=== PATIENT | female | born 1970 | race American Indian/Alaskan Native ===

== ENCOUNTER 2017-10-27 17:19 | Inpatient (IN) | payer MEDICAID ==
[2017-10-27] MEDS ORDERED: NACL 0.9% 1000 ML 2,000 ML IV ONE (18:50)
[2017-10-27] MEDS ORDERED: ZOFRAN IV ONE ×2 (19:39→20:12)
[2017-10-27] MEDS ORDERED: TESSALON PERLES PO ONE (20:12)
[2017-10-27] MEDS ORDERED: MORPHINE IV ONE (20:12)
--- NOTE | 2017-10-27 20:18 | Emergency Department Report ---
HPI - HPI HPI: The patient is a 47-year-old female presents for evaluation of cough and ill- feeling for the past one day. The patient reports a nonproductive cough since last night, harsh in quality, moderate in severity, and associated with nausea and multiple episodes of nonbilious, nonbloody emesis. She is has also experienced decreased appetite and by mouth intake and generalized weakness since this a.m. The patient denies fever, chest pain, dyspnea, syncope, hemoptysis, unilateral leg swelling, abdominal pain, dysuria, hematuria, diarrhea, blood in the stool, oral contraceptive use, recent immobilization, history of DVT or PE, recent cancer. <JANETTE OCAMPO P - Last Filed: 10/27/17 20:13> <SHANA RITTER - Last Filed: 10/27/17 22:41> - General Chief Complaint: Nausea/Vomiting/Diarrhea Time Seen by Provider: 10/27/17 18:50 ED Past Medical Hx - Past Medical History Previous Medical History?: Yes Hx Congestive Heart Failure: No Hx Diabetes: No Hx Asthma: No Hx COPD: No Hx HIV: No Additional medical history: shunt in her head - Surgical History Past Surgical History?: Yes Additional Surgical History: TUBAL LIGATION - Social History Smoking Status: Never Smoker Substance Use Type: None <JANETTE OCAMPO P - Last Filed: 10/27/17 20:13> <SHANA RITTER - Last Filed: 10/27/17 22:41> - Medications Home Medications: Home Medications Medication Instructions Recorded Confirmed Last Taken Type Desmopressin [Ddavp] 0.1 mg PO BID 03/25/16 03/25/16 Unknown History Hydrocortisone [Cortef TAB] 2 tab PO QAM 03/25/16 03/25/16 Unknown History Hydrocortisone [Cortef TAB] 10 mg PO DAILY 03/25/16 03/25/16 Unknown History Levothyroxine Sodium [Synthroid] 175 mcg PO QDAY 03/25/16 03/25/16 Unknown History Potassium Chloride [K-Dur] 20 meq PO BID 03/25/16 03/25/16 Unknown History Warfarin [Coumadin] 1 mg PO Q48H 03/25/16 03/25/16 Unknown History ED Review of Systems ROS: Stated complaint: JOSE MIGUEL Other details as noted in HPI Constitutional: denies: fever ENT: denies: throat or neck pain Respiratory: reports cough denies shortness of breath Cardiovascular: denies: chest pain Endocrine: denies unexplained weight loss or gain Gastrointestinal: denies: abdominal pain reports nausea and vomiting Genitourinary: denies: dysuria Musculoskeletal: denies: leg swelling Skin: denies: rash Neurological: denies: headache Hematological/Lymphatic: denies: easy bleeding or easy bruising Psych: denies sadness or hopelessness <JANETTE OCAMPO P - Last Filed: 10/27/17 20:13> ROS: Stated complaint: JOSE MIGUEL Other details as noted in HPI <SHANA RITTER - Last Filed: 10/27/17 22:41> Physical Exam - Physical Exam Vital Signs: Vital Signs 10/27/17 18:09 Temperature 97.7 F Pulse Rate 130 H Blood Pressure 118/80 O2 Sat by Pulse 94 Oximetry Physical Exam: General: well-nourished, well-developed, no acute distress Head: Normocephalic, atraumatic Eyes: normal sclera ENT: Mucous membranes are pale and dry Neck: No neck stiffness, no cervical adenopathy Respiratory: Breath sounds equal bilaterally, no wheezing, rales, or rhonchi Cardio: S1 and S2 present, no murmurs, rubs, gallops, capillary refill is delayed Abdomen: Normoactive bowel sounds, soft abdomen, no rigidity, no guarding or rebound tenderness Musc: No pitting edema Skin: No rash Neuro: Alert oriented 3, no facial drooping, normal speech, no obvious gross sensation or motor deficits on neuro exam Psych: Normal affect <JANETTE OCAMPO P - Last Filed: 10/27/17 20:13> - Physical Exam Vital Signs: Vital Signs 10/27/17 18:09 Temperature 97.7 F Pulse Rate 130 H Blood Pressure 118/80 O2 Sat by Pulse 94 Oximetry <SHANA RITTER - Last Filed: 10/27/17 22:41> ED Course Vital Signs 10/27/17 18:09 Temperature 97.7 F Pulse Rate 130 H Blood Pressure 118/80 O2 Sat by Pulse 94 Oximetry <JANETTE OCAMPO - Last Filed: 10/27/17 20:13> Vital Signs 10/27/17 18:09 Temperature 97.7 F Pulse Rate 130 H Blood Pressure 118/80 O2 Sat by Pulse 94 Oximetry <SHANA RITTER - Last Filed: 10/27/17 22:41> ED Medical Decision Making - Medical Decision Making The patient was seen and examined by myself. The patient is placed on a first crusher and continuous pulse ox. On initial evaluation, the patient was found to be in no distress, although with significantly elevated heart rate of 130. Evaluation orders were placed. The patient is given 2 L him saline fluid bolus for treatment of dehydration and tachycardia. The patient is given a cough medicine and congestion medicine. She is also given IV Zofran for treatment of her nausea and vomiting. Lab results and imaging are pending. The patient was signed off to the operation shift supervisor physician Dr. Ritter, whom agreed to follow-up on pending labs and imaging and to arrange ultimate appropriate disposition. <JANETTE OCAMPO - Last Filed: 10/27/17 20:13> - Lab Data Result diagrams: 10/27/17 20:30 10/27/17 20:30 Lab Results 10/27/17 10/27/17 10/27/17 Range/Units 18:05 20:30 20:30 WBC 22.7 H (4.5-11.0) K/mm3 RBC 5.01 (3.65-5.03) M/mm3 Hgb 12.2 (10.1-14.3) gm/dl Hct 39.3 (30.3-42.9) % MCV 78 L (79-97) fl MCH 24 L (28-32) pg MCHC 31 (30-34) % RDW 18.9 H (13.2-15.2) % Plt Count 254 (140-440) K/mm3 Add Manual Diff Complete Total Counted 100 Seg Neuts % (Manual) 95.0 H (40.0-70.0) % Band Neutrophils % 0 % Lymphocytes % (Manual) 4.0 L (13.4-35.0) % Reactive Lymphs % (Man) 0 % Monocytes % (Manual) 1.0 (0.0-7.3) % Eosinophils % (Manual) 0 (0.0-4.3) % Basophils % (Manual) 0 (0.0-1.8) % Metamyelocytes % 0 % Myelocytes % 0 % Promyelocytes % 0 % Blast Cells % 0 % Nucleated RBC % Not Reportable Seg Neutrophils # Man 21.6 H (1.8-7.7) K/mm3 Band Neutrophils # 0.0 K/mm3 Lymphocytes # (Manual) 0.9 L (1.2-5.4) K/mm3 Abs React Lymphs (Man) 0.0 K/mm3 Monocytes # (Manual) 0.2 (0.0-0.8) K/mm3 Eosinophils # (Manual) 0.0 (0.0-0.4) K/mm3 Basophils # (Manual) 0.0 (0.0-0.1) K/mm3 Metamyelocytes # 0.0 K/mm3 Myelocytes # 0.0 K/mm3 Promyelocytes # 0.0 K/mm3 Blast Cells # 0.0 K/mm3 WBC Morphology Not Reportable Hypersegmented Neuts Not Reportable Hyposegmented Neuts Not Reportable Hypogranular Neuts Not Reportable Smudge Cells Not Reportable Toxic Granulation Not Reportable Toxic Vacuolation Not Reportable Dohle Bodies Not Reportable Pelger-Huet Anomaly Not Reportable Patrick Rods Not Reportable Platelet Estimate Appears normal Clumped Platelets Not Reportable Plt Clumps, EDTA Not Reportable Large Platelets Not Reportable Giant Platelets Not Reportable Platelet Satelliting Not Reportable Plt Morphology Comment Not Reportable RBC Morphology Not Reportable Dimorphic RBCs Not Reportable Polychromasia Not Reportable Hypochromasia Not Reportable Poikilocytosis 1+ Anisocytosis 1+ Microcytosis Few Macrocytosis Not Reportable Spherocytes Not Reportable Pappenheimer Bodies Not Reportable Sickle Cells Not Reportable Target Cells Not Reportable Tear Drop Cells Not Reportable Ovalocytes Not Reportable Helmet Cells Not Reportable [place] Bodies Not Reportable Effie Rings Not Reportable [place]ha Cells Not Reportable Bite Cells Not Reportable Crenated Cell Not Reportable Elliptocytes Not Reportable Acanthocytes (Spur) Not Reportable Rouleaux Not Reportable Hemoglobin C Crystals Not Reportable Schistocytes Not Reportable Malaria parasites Not Reportable Dagoberto Bodies Not Reportable Hem Pathologist Commnt No Sodium 144 (137-145) mmol/L Potassium 2.8 L* (3.6-5.0) mmol/L Chloride 104.4 (98-107) mmol/L Carbon Dioxide 22 (22-30) mmol/L Anion Gap 20 mmol/L BUN 8 (7-17) mg/dL Creatinine 1.6 H (0.7-1.2) mg/dL Estimated GFR 42 ml/min BUN/Creatinine Ratio 5 % Glucose 122 H (65-100) mg/dL POC Glucose 153 H (70-105) Calcium 8.9 (8.4-10.2) mg/dL Total Bilirubin 1.40 H (0.1-1.2) mg/dL AST 98 H (5-40) units/L ALT 40 (7-56) units/L Alkaline Phosphatase 79 (35-129) units/L Total Protein 6.7 (6.3-8.2) g/dL Albumin 3.0 L (3.9-5) g/dL Albumin/Globulin Ratio 0.8 % Lipase 38 (13-60) units/L HCG, Qual (Negative) Influenza A (Rapid) (Negative) Influenza B (Rapid) (Negative) 10/27/17 10/27/17 Range/Units 20:30 20:40 WBC (4.5-11.0) K/mm3 RBC (3.65-5.03) M/mm3 Hgb (10.1-14.3) gm/dl Hct (30.3-42.9) % MCV (79-97) fl MCH (28-32) pg MCHC (30-34) % RDW (13.2-15.2) % Plt Count (140-440) K/mm3 Add Manual Diff Total Counted Seg Neuts % (Manual) (40.0-70.0) % Band Neutrophils % % Lymphocytes % (Manual) (13.4-35.0) % Reactive Lymphs % (Man) % Monocytes % (Manual) (0.0-7.3) % Eosinophils % (Manual) (0.0-4.3) % Basophils % (Manual) (0.0-1.8) % Metamyelocytes % % Myelocytes % % Promyelocytes % % Blast Cells % % Nucleated RBC % Seg Neutrophils # Man (1.8-7.7) K/mm3 Band Neutrophils # K/mm3 Lymphocytes # (Manual) (1.2-5.4) K/mm3 Abs React Lymphs (Man) K/mm3 Monocytes # (Manual) (0.0-0.8) K/mm3 Eosinophils # (Manual) (0.0-0.4) K/mm3 Basophils # (Manual) (0.0-0.1) K/mm3 Metamyelocytes # K/mm3 Myelocytes # K/mm3 Promyelocytes # K/mm3 Blast Cells # K/mm3 WBC Morphology Hypersegmented Neuts Hyposegmented Neuts Hypogranular Neuts Smudge Cells Toxic Granulation Toxic Vacuolation Dohle Bodies Pelger-Huet Anomaly Patrick Rods Platelet Estimate Clumped Platelets Plt Clumps, EDTA Large Platelets Giant Platelets Platelet Satelliting Plt Morphology Comment RBC Morphology Dimorphic RBCs Polychromasia Hypochromasia Poikilocytosis Anisocytosis Microcytosis Macrocytosis Spherocytes Pappenheimer Bodies Sickle Cells Target Cells Tear Drop Cells Ovalocytes Helmet Cells [place] Bodies Effie Rings Bighorn Cells Bite Cells Crenated Cell Elliptocytes Acanthocytes (Spur) Rouleaux Hemoglobin C Crystals Schistocytes Malaria parasites Dagoberto Bodies Hem Pathologist Commnt Sodium (137-145) mmol/L Potassium (3.6-5.0) mmol/L Chloride (98-107) mmol/L Carbon Dioxide (22-30) mmol/L Anion Gap mmol/L BUN (7-17) mg/dL Creatinine (0.7-1.2) mg/dL Estimated GFR ml/min BUN/Creatinine Ratio % Glucose (65-100) mg/dL POC Glucose (70-105) Calcium (8.4-10.2) mg/dL Total Bilirubin (0.1-1.2) mg/dL AST (5-40) units/L ALT (7-56) units/L Alkaline Phosphatase (35-129) units/L Total Protein (6.3-8.2) g/dL Albumin (3.9-5) g/dL Albumin/Globulin Ratio % Lipase (13-60) units/L HCG, Qual Negative (Negative) Influenza A (Rapid) Negative (Negative) Influenza B (Rapid) Negative (Negative) - Medical Decision Making + pneumonia b/l with effusion blood cultures Rocephin azithromycin ordered. Significant leukocytosis influenza neg Vomiting improved with treatment ordered by Dr. Ocampo Heart rate improving with IV fluids Positive associated hypokalemia likely secondary to vomiting. By mouth potassium given Hospitalist informed for admission <SHANA RITTER - Last Filed: 10/27/17 22:41> Critical care attestation.: If time is entered above; I have spent that time in minutes in the direct care of this critically ill patient, excluding procedure time. <JANTETE OCAMPO P - Last Filed: 10/27/17 20:13> Critical care attestation.: If time is entered above; I have spent that time in minutes in the direct care of this critically ill patient, excluding procedure time. <SHANA RITTER - Last Filed: 10/27/17 22:41> ED Disposition Time of Disposition: 20:20 <JANETTE OCAMPO P - Last Filed: 10/27/17 20:13> Is pt being admited?: Yes Time of Disposition: 22:36 (admitted to Hosptialist) <SHANA RITTER - Last Filed: 10/27/17 22:41> Clinical Impression: Bilateral pneumonia, Pleural effusion, Nausea and vomiting in adult, Dehydration, Renal insufficiency, Hypokalemia, Leukocytosis Disposition: OP ADMIT IP TO THIS HOSP Condition: Stable Referrals: MAE GRAHAM MD [Primary Care Provider] - 3-5 Days
[2017-10-27 20:49] LABS: Hematocrit 39.3 % (30.3-42.9); Hemoglobin 12.2 gm/dl (10.1-14.3); Mean Corpuscular HGB Conc 31 % (30-34); Mean Corpuscular Volume 78 fl (79-97); Platelet Count 254 K/mm3 (140-440); Red Blood Count 5.01 M/mm3 (3.65-5.03); Red Cell Distribution Width 18.9 % (13.2-15.2)
[2017-10-27 20:53] LABS: Mean Corpuscular Hemoglobin 24 pg (28-32)
[2017-10-27 21:09] LABS: Calcium 8.9 mg/dL (8.4-10.2)
[2017-10-27 21:31] LABS: Basophils % (Manual) 0 % (0.0-1.8); Eosinophils % (Manual) 0 % (0.0-4.3); Total Cells Counted 100
[2017-10-27 21:32] LABS: Anisocytosis 1+; Poikilocytosis 1+
[2017-10-27] MEDS ORDERED: K-DUR PO ONE (21:56)
--- NOTE | 2017-10-27 21:58 | XRay Report ---
FINAL REPORT PROCEDURE: XR CHEST ROUTINE 2V TECHNIQUE: PA and lateral chest radiographs were obtained. CPT 46049 HISTORY: dyspnea COMPARISON: No prior studies are available for comparison. FINDINGS: Heart: Normal. Mediastinum/Vessels: Normal. Lungs/Pleural space: There are patchy bibasilar airspace opacities, compatible with infiltrates or atelectasis. Small bilateral pleural effusions. No pneumothorax. Bony thorax: No acute osseous abnormality. Other: IMPRESSION: Patchy bibasilar airspace opacities, compatible with infiltrates or atelectasis. Small bilateral pleural effusions.
[2017-10-27] MEDS ORDERED: ZITHROMAX 500 MG in NACL 0.9% 250ML 250 ML IV ONE (22:17)
[2017-10-27] MEDS ORDERED: ROCEPHIN/NS 1 GM/50 ML 1 GM/50 ML BAG IV ONE (22:17)
[2017-10-27] MEDS ORDERED: cefTRIAXone 1 GM in NACL 0.9% 20 ML IV ONE (22:17)
[2017-10-27] MEDS ORDERED: DULCOLAX PR PRN (23:26)
[2017-10-27] MEDS ORDERED: TYLENOL PO PRN (23:26)
[2017-10-27] MEDS ORDERED: MILK OF MAGNESIA PO PRN (23:26)
[2017-10-27] MEDS ORDERED: PERCOCET 5/325 PO PRN (23:26)
--- NOTE | 2017-10-27 23:27 | History and Physical Report ---
History of Present Illness Date of examination: 10/27/17 History of present illness: 47-year-old male with a history of pituitary tumor, cortisol deficiency will deficiency was brought to the emergency room with complaints of altered mental status that started yesterday. Daughter at bedside also stated that she complained of shortness of breath, cough productive of yellow phlegm. Patient is unable to give a review of systems PAST MEDICAL HISTORY:pituitary tumor, cortisol deficiency PAST SURGICAL HISTORY: History tumor removal FAMILY HISTORY: Hypertension SOCIAL HISTORY: Denies alcohol, tobacco, drugs Medications and Allergies Allergies Allergy/AdvReac Type Severity Reaction Status Date / Time No Known Allergies Allergy Verified 10/16/15 04:58 Home Medications Medication Instructions Recorded Confirmed Last Taken Type Levothyroxine Sodium [Synthroid] 175 mcg PO QDAY 03/25/16 10/28/17 10/26/17 History Potassium Chloride [K-Dur] 20 meq PO BID 03/25/16 10/28/17 10/26/17 History Hydrocortisone [Cortef TAB] 10 mg PO BID 10/28/17 10/28/17 10/26/17 History Exam - Physical Exam Narrative exam: Gen. appearance: Patient lying in bed in no acute distress HEENT: Normocephalic/atraumatic, pupils equal round reactive to light, extra occular movement intact, no scleral icterus, no JVD or thyromegaly or nodule, neck is supple, mucous membrane moist, no erythema or exudate Heart: S1-S2, regular rate and rhythm Lungs: Crackles bilateral breathing comfortable Abdomen: Positive bowel sounds, nontender, nondistended, no organomegaly Extremities: No edema, cyanosis, clubbing Neuro:: Oriented 3 , cranial nerves II-12 intact, speech, motor intact Skin: No rash, nodules, warm dry - Constitutional Vitals: Temp Pulse Resp BP Pulse Ox 98.7 F 119 H 18 116/60 98 10/27/17 22:31 10/27/17 22:31 10/27/17 22:31 10/27/17 22:31 10/27/17 22:31 Results - Labs CBC & Chem 7: 10/28/17 05:13 10/28/17 05:13 Labs: Abnormal lab results 10/27/17 10/27/17 10/27/17 Range/Units 18:05 20:30 20:30 WBC 22.7 H (4.5-11.0) K/mm3 MCV 78 L (79-97) fl MCH 24 L (28-32) pg RDW 18.9 H (13.2-15.2) % Seg Neuts % (Manual) 95.0 H (40.0-70.0) % Lymphocytes % (Manual) 4.0 L (13.4-35.0) % Seg Neutrophils # Man 21.6 H (1.8-7.7) K/mm3 Lymphocytes # (Manual) 0.9 L (1.2-5.4) K/mm3 Potassium 2.8 L* (3.6-5.0) mmol/L Creatinine 1.6 H (0.7-1.2) mg/dL Glucose 122 H (65-100) mg/dL POC Glucose 153 H (70-105) Magnesium (1.7-2.3) mg/dL Total Bilirubin 1.40 H (0.1-1.2) mg/dL AST 98 H (5-40) units/L Albumin 3.0 L (3.9-5) g/dL 10/27/17 Range/Units 21:57 WBC (4.5-11.0) K/mm3 MCV (79-97) fl MCH (28-32) pg RDW (13.2-15.2) % Seg Neuts % (Manual) (40.0-70.0) % Lymphocytes % (Manual) (13.4-35.0) % Seg Neutrophils # Man (1.8-7.7) K/mm3 Lymphocytes # (Manual) (1.2-5.4) K/mm3 Potassium (3.6-5.0) mmol/L Creatinine (0.7-1.2) mg/dL Glucose (65-100) mg/dL POC Glucose (70-105) Magnesium 1.40 L (1.7-2.3) mg/dL Total Bilirubin (0.1-1.2) mg/dL AST (5-40) units/L Albumin (3.9-5) g/dL - Imaging and Cardiology EKG: image reviewed Chest x-ray: image reviewed Assessment and Plan Assessment Sepsis community-acquired pneumonia History of pituitary tumor Cortisol deficiency Hypothyroidism Plan Admit to medicine Start IV fluid, IV Levaquin, follow cultures, obtain sputum culture DVT prophylaxis, continue for further outpatient medications addendum Patient respiratory rate high 20s, systolic blood pressure of 80 Fluid challenge, start IV cortisone, double coverage with Zosyn Start IV pressors and upgrade to ICU, consult critical care Obtain ABG and start on BiPAP Discussed with daughter at bedside Critical care 40 minutes
[2017-10-28 01:09] LABS: Bacteria,Urine 2+ /HPF (Negative); Bilirubin,Urine NEG (Negative); Blood,Urine NEG (Negative); Color,Urine Amber (Yellow); Mucus,Urine 1+ /HPF; Nitrite,Urine NEG (Negative)
[2017-10-28] MEDS ORDERED: NACL 0.9% 1000 ML 1,000 ML IV SCH ×2 (02:00→07:00)
[2017-10-28] MEDS ORDERED: ZOFRAN ONE (03:24)
[2017-10-28] MEDS: ZOFRAN IV PRN (03:27)
[2017-10-28] MEDS ORDERED: TYLENOL PR ONE ×3 (05:00→14:47)
[2017-10-28 05:37] LABS: Hematocrit 37.2 % (30.3-42.9); Hemoglobin 11.5 gm/dl (10.1-14.3); Mean Corpuscular HGB Conc 31 % (30-34); Mean Corpuscular Volume 79 fl (79-97); Platelet Count 261 K/mm3 (140-440); Red Blood Count 4.74 M/mm3 (3.65-5.03)
[2017-10-28 05:38] LABS: Mean Corpuscular Hemoglobin 24 pg (28-32)
[2017-10-28 05:55] LABS: Calcium 8.8 mg/dL (8.4-10.2)
[2017-10-28] MEDS ORDERED: NACL 0.9% 1000 ML 1,000 ML IV ONE (05:58)
[2017-10-28] MEDS ORDERED: SYNTHROID PO SCH ×2 (06:00)
[2017-10-28] MEDS ORDERED: ZOSYN/NS 4.5GM/100ML 4.5 GM/100 ML VIAL IV SCH (06:00)
[2017-10-28] MEDS ORDERED: ZOSYN/NS 4.5GM/100ML 4.5 GM/100 ML VIAL IV ONE (06:00)
[2017-10-28 06:46] LABS: Band Neutrophils # (Manual) 4.1 K/mm3; Basophils % (Manual) 0 % (0.0-1.8); Eosinophils % (Manual) 0 % (0.0-4.3); Giant Platelets Rare; Myelocytes # (Manual) 0.1 K/mm3; Platelet Estimate Consistent w Auto; Total Cells Counted 200; Toxic Granulation Rare; Toxic Vacuolation Rare
[2017-10-28 06:47] LABS: Hypochromasia 1+
[2017-10-28] MEDS ORDERED: Vasostrict 20 UNIT in NACL 0.9% 100 ML IV SCH (07:00)
--- NOTE | 2017-10-28 07:26 | Event Note ---
Date: 10/28/17 I was asked by the admitting hospitalist to place a central line in this patient secondary to hypotension. The patient's daughter is currently bedside and the procedure was explained to her, and the patient, and the daughter has given us written consent to do the procedure. Sterile field and sterile procedure was maintained. I first attempted a right femoral central venous catheter placement. Using the ultrasound, I was able to see the femoral vein and the femoral artery. Her anatomy was slightly skewed as the artery appeared to be running anterior to the vein. In the first cannulation attempt, I did get the artery but there was no dilation done and the needle was removed and pressure held. I then was able to get the femoral vein. However the guidewire did not appear to feed more than about 10 cm so I stopped this attempt and once again pressure was held. There was no hematoma or any other complications seen from this attempt. The second attempt was made in the left femoral vein. Once again, using ultrasound, I was able to see the femoral vein. The vein was cannulated with nonpulsatile venous appearing blood return. The guidewire was then fed without resistance. I looked at the ultrasound again and the guidewire appeared to be going into the femoral vein. I then proceeded to make a small cut at the skin with the scalpel and then dilated the femoral vein over the guidewire. Once the dilation was done, the triple-lumen catheter was placed over the guidewire into the femoral vein and the guidewire was removed. There was good blood return through the catheters. All 3 of the lumens were flushed with sterile saline and had good blood return and were given caps. The CVC was then sutured to the skin and multiple Tegaderms and some tape was then placed. Patient was given 3 mL of 1% lidocaine without epinephrine on the first attempt and 3 mL of 1% lidocaine without epinephrine on the second attempt for a total of 6 mL. There was a total estimated blood loss of about 15 mL. No obvious complications have been seen for this procedure.
[2017-10-28] MEDS: ZOSYN/NS 4.5GM/100ML 4.5 GM/100 ML VIAL IV SCH ×2 (07:51→15:15)
[2017-10-28] MEDS ORDERED: MORPHINE IV PRN (09:17)
[2017-10-28] MEDS ORDERED: LEVOTHYROXINE SODIUM 175 MCG PO SCH (10:00)
[2017-10-28] MEDS ORDERED: CORTEF PO SCH ×2 (10:00)
[2017-10-28] MEDS ORDERED: LOVENOX SUB-Q SCH (10:00)
[2017-10-28] MEDS: LEVAQUIN 750MG/150ML 750 MG/150 ML BAG IV SCH (11:00)
[2017-10-28] MEDS: LOVENOX SUB-Q SCH (11:01)
[2017-10-28] MEDS: DDAVP PO SCH (12:24)
--- NOTE | 2017-10-28 14:41 | Progress Note ---
Assessment and Plan Sepsis likely due to CAP and UTI - cont abx follow cx Shock - likely from sepsis with underlying h/o corticosteroid deficiency - cont levophed and vasopressin, wean off as tolerated - cont solucortef 100mg q8h History of pituitary tumor - s/p resection 2years ago - cont synthroid, steroid and Ddavp h/o cortisol insufficiency/ hypothyroidism/iatrogenic DI - cont supplement iv route as pt on BiPAP and did not pass seallow study Acute respiratory failure - likely from PNA, cont bipap - nebulizer, steroid - consulted [facility] NIKIA - likely vasomotor nephropathy from sepsis - cont iv fluid, consult renal Morbid obesity - nutrition consult physical exam: Gen. appearance: Patient lying in bed in no acute distress, on bipap HEENT: Normocephalic/atraumatic, pupils equal round reactive to light, no scleral icterus, no JVD or thyromegaly or nodule, neck is supple, mucous membrane moist, no erythema or exudate Heart: S1-S2, tachycardic Lungs: Crackles bilateral breathing comfortable Abdomen: Positive bowel sounds, nontender, nondistended, no organomegaly Extremities: No edema, cyanosis, clubbing Neuro:: sedated now Skin: No rash, nodules, warm dry The high probability of a clinically significant, sudden or life threatening deterioration of the system(s) required my full and direct attention, intervention and personal management. The aggregate critical care time was [40] minutes. This time is in addition to time spent performing reported procedures but includes the following: [x] Data Review and interpretation [x] Patient assessment and monitoring of vital signs [x] Documentation [x] Medication orders and management Subjective Date of service: 10/28/17 Interval history: patient seen and examined having large amount of urine output she is on biPAP, sedated as she got a dose of moephine discussed with daughter at bedside Objective - Constitutional Vitals: Vital Signs - 12hr 10/28/17 10/28/17 10/28/17 02:46 03:00 03:18 Temperature Pulse Rate 122 H 124 H 125 H Respiratory 43 H 48 H 16 Rate Blood Pressure Blood Pressure [Left] O2 Sat by Pulse Oximetry 10/28/17 10/28/17 10/28/17 03:30 03:46 04:00 Temperature Pulse Rate 123 H 120 H 122 H Respiratory 48 H 48 H 27 H Rate Blood Pressure Blood Pressure [Left] O2 Sat by Pulse 91 94 Oximetry 10/28/17 10/28/17 10/28/17 04:16 04:30 04:46 Temperature Pulse Rate 121 H 121 H Respiratory 27 H 40 H 46 H Rate Blood Pressure Blood Pressure [Left] O2 Sat by Pulse 95 92 92 Oximetry 10/28/17 10/28/17 10/28/17 05:00 05:05 05:15 Temperature 101.2 F H Pulse Rate 121 H 121 H Respiratory 40 H 45 H Rate Blood Pressure 80/38 77/38 Blood Pressure [Left] O2 Sat by Pulse 93 95 95 Oximetry 10/28/17 10/28/17 10/28/17 05:30 05:45 06:50 Temperature Pulse Rate 121 H 120 H 121 H Respiratory 41 H 42 H 30 H Rate Blood Pressure 82/40 86/42 104/54 Blood Pressure [Left] O2 Sat by Pulse 96 96 94 Oximetry 10/28/17 10/28/17 10/28/17 07:15 07:26 07:30 Temperature Pulse Rate 117 H 115 H 116 H Respiratory 20 18 20 Rate Blood Pressure Blood Pressure 106/57 98/51 [Left] O2 Sat by Pulse 96 92 97 Oximetry 10/28/17 10/28/17 10/28/17 07:45 08:00 08:15 Temperature Pulse Rate 116 H 117 H 117 H Respiratory 20 16 20 Rate Blood Pressure Blood Pressure 108/57 111/61 109/51 [Left] O2 Sat by Pulse 96 96 96 Oximetry 10/28/17 10/28/17 10/28/17 08:30 11:02 11:32 Temperature Pulse Rate 116 H Respiratory 20 20 18 Rate Blood Pressure Blood Pressure 97/59 [Left] O2 Sat by Pulse 96 Oximetry - Labs CBC & Chem 7: 10/29/17 04:18 10/29/17 04:18 Labs: Abnormal lab results 10/27/17 10/27/17 10/27/17 Range/Units 18:05 20:30 20:30 WBC 22.7 H (4.5-11.0) K/mm3 MCV 78 L (79-97) fl MCH 24 L (28-32) pg RDW 18.9 H (13.2-15.2) % Seg Neuts % (Manual) 95.0 H (40.0-70.0) % Lymphocytes % (Manual) 4.0 L (13.4-35.0) % Monocytes % (Manual) (0.0-7.3) % Seg Neutrophils # Man 21.6 H (1.8-7.7) K/mm3 Lymphocytes # (Manual) 0.9 L (1.2-5.4) K/mm3 Monocytes # (Manual) (0.0-0.8) K/mm3 POC ABG pH (7.35-7.45) POC ABG pO2 (80-105) VBG pH (7.320-7.420) Potassium 2.8 L* (3.6-5.0) mmol/L Carbon Dioxide (22-30) mmol/L Creatinine 1.6 H (0.7-1.2) mg/dL Glucose 122 H (65-100) mg/dL POC Glucose 153 H (70-105) Lactic Acid (0.7-2.0) mmol/L Magnesium (1.7-2.3) mg/dL Total Bilirubin 1.40 H (0.1-1.2) mg/dL AST 98 H (5-40) units/L NT-Pro-B Natriuret Pep (0-450) pg/mL Albumin 3.0 L (3.9-5) g/dL Urine WBC (Auto) (0.0-6.0) /HPF U Epithel Cells (Auto) (0-13.0) /HPF 10/27/17 10/27/17 10/27/17 Range/Units 21:57 22:55 22:55 WBC (4.5-11.0) K/mm3 MCV (79-97) fl MCH (28-32) pg RDW (13.2-15.2) % Seg Neuts % (Manual) (40.0-70.0) % Lymphocytes % (Manual) (13.4-35.0) % Monocytes % (Manual) (0.0-7.3) % Seg Neutrophils # Man (1.8-7.7) K/mm3 Lymphocytes # (Manual) (1.2-5.4) K/mm3 Monocytes # (Manual) (0.0-0.8) K/mm3 POC ABG pH (7.35-7.45) POC ABG pO2 (80-105) VBG pH (7.320-7.420) Potassium (3.6-5.0) mmol/L Carbon Dioxide (22-30) mmol/L Creatinine (0.7-1.2) mg/dL Glucose (65-100) mg/dL POC Glucose (70-105) Lactic Acid 6.30 H* (0.7-2.0) mmol/L Magnesium 1.40 L (1.7-2.3) mg/dL Total Bilirubin (0.1-1.2) mg/dL AST (5-40) units/L NT-Pro-B Natriuret Pep 528.8 H (0-450) pg/mL Albumin (3.9-5) g/dL Urine WBC (Auto) (0.0-6.0) /HPF U Epithel Cells (Auto) (0-13.0) /HPF 10/27/17 10/27/17 10/28/17 Range/Units 22:55 Unknown 05:13 WBC 28.4 H (4.5-11.0) K/mm3 MCV (79-97) fl MCH 24 L (28-32) pg RDW 19.0 H (13.2-15.2) % Seg Neuts % (Manual) (40.0-70.0) % Lymphocytes % (Manual) 10.0 L (13.4-35.0) % Monocytes % (Manual) 10.0 H (0.0-7.3) % Seg Neutrophils # Man 18.3 H (1.8-7.7) K/mm3 Lymphocytes # (Manual) (1.2-5.4) K/mm3 Monocytes # (Manual) 2.8 H (0.0-0.8) K/mm3 POC ABG pH (7.35-7.45) POC ABG pO2 (80-105) VBG pH 7.199 L* (7.320-7.420) Potassium (3.6-5.0) mmol/L Carbon Dioxide (22-30) mmol/L Creatinine (0.7-1.2) mg/dL Glucose (65-100) mg/dL POC Glucose (70-105) Lactic Acid (0.7-2.0) mmol/L Magnesium (1.7-2.3) mg/dL Total Bilirubin (0.1-1.2) mg/dL AST (5-40) units/L NT-Pro-B Natriuret Pep (0-450) pg/mL Albumin (3.9-5) g/dL Urine WBC (Auto) 23.0 H (0.0-6.0) /HPF U Epithel Cells (Auto) 28.0 H (0-13.0) /HPF 10/28/17 10/28/17 Range/Units 05:13 06:05 WBC (4.5-11.0) K/mm3 MCV (79-97) fl MCH (28-32) pg RDW (13.2-15.2) % Seg Neuts % (Manual) (40.0-70.0) % Lymphocytes % (Manual) (13.4-35.0) % Monocytes % (Manual) (0.0-7.3) % Seg Neutrophils # Man (1.8-7.7) K/mm3 Lymphocytes # (Manual) (1.2-5.4) K/mm3 Monocytes # (Manual) (0.0-0.8) K/mm3 POC ABG pH 7.345 L (7.35-7.45) POC ABG pO2 61 L (80-105) VBG pH (7.320-7.420) Potassium (3.6-5.0) mmol/L Carbon Dioxide 19 L (22-30) mmol/L Creatinine 2.1 H (0.7-1.2) mg/dL Glucose 140 H (65-100) mg/dL POC Glucose (70-105) Lactic Acid (0.7-2.0) mmol/L Magnesium (1.7-2.3) mg/dL Total Bilirubin (0.1-1.2) mg/dL AST (5-40) units/L NT-Pro-B Natriuret Pep (0-450) pg/mL Albumin (3.9-5) g/dL Urine WBC (Auto) (0.0-6.0) /HPF U Epithel Cells (Auto) (0-13.0) /HPF
[2017-10-28] MEDS: SYNTHROID IV SCH (16:45)
[2017-10-28] MEDS ORDERED: D5/0.45NS 1,000 ML IV SCH (17:00)
--- NOTE | 2017-10-28 17:15 | Consultation ---
History of Present Illness - Reason for Consult Consult date: 10/28/17 - History of Present Illness pt was seen and examined in ER. Discussed with daughter at bed side. Consult dictated. Medications and Allergies Allergies Allergy/AdvReac Type Severity Reaction Status Date / Time heparin Allergy Unknown Verified 10/28/17 18:40 Home Medications Medication Instructions Recorded Confirmed Last Taken Type Levothyroxine Sodium [Synthroid] 175 mcg PO QDAY 03/25/16 10/28/17 10/26/17 History Potassium Chloride [K-Dur] 20 meq PO BID 03/25/16 10/28/17 10/26/17 History Hydrocortisone [Cortef TAB] 10 mg PO BID 10/28/17 10/28/17 10/26/17 History Active Meds: Active Medications Acetaminophen (Tylenol) 650 mg PO Q4H PRN PRN Reason: Pain MILD(1-3)/Fever >100.5/MCDOWELL Bisacodyl (Dulcolax) 10 mg ME QDAY PRN PRN Reason: Constipation unrelieved by MOM Desmopressin Acetate (Ddavp) 0.1 mg PO BID [facility] Last Admin: 10/28/17 12:24 Dose: Not Given Enoxaparin Sodium (Lovenox) 40 mg SUB-Q QDAY@1000 ROCKY Last Admin: 10/28/17 11:01 Dose: 40 mg Hydrocortisone Sodium Succinate (Solu-Cortef) 100 mg IV Q8HR [facility] Last Admin: 10/28/17 15:14 Dose: 100 mg Levofloxacin/Dextrose (Levaquin 750mg/150ml) 750 mg in 150 mls @ 100 mls/hr IV Q24HR ROCKY PRN Reason: Protocol Last Admin: 10/28/17 11:00 Dose: 100 mls/hr Piperacillin Sod/Tazobactam Sod (Zosyn/Ns 4.5gm/100ml) 4.5 gm in 100 mls @ 200 mls/hr IV Q8HR ROCKY PRN Reason: Protocol Last Admin: 10/28/17 15:15 Dose: 200 mls/hr Vasopressin 20 unit/ Sodium (Chloride) 101 mls @ 9.09 mls/hr IV TITR ROCKY; 0.03 UNITS/MIN PRN Reason: Protocol Last Admin: 10/28/17 06:58 Dose: 0.03 units/min, 9.09 mls/hr Sodium Chloride (Nacl 0.9% 1000 Ml) 1,000 mls @ 100 mls/hr IV DIRECT ROCKY Dextrose/Sodium Chloride (D5/0.45ns) 1,000 mls @ 100 mls/hr IV DIRECT ROCKY Last Admin: 10/28/17 16:44 Dose: 100 mls/hr Levothyroxine Sodium (Synthroid) 100 mcg IV DAILY@0600 ROCKY Last Admin: 10/28/17 16:45 Dose: 100 mcg Magnesium Hydroxide (Milk Of Magnesia) 30 ml PO Q4H PRN PRN Reason: Constipation Morphine Sulfate (Morphine) 2 mg IV Q4H PRN PRN Reason: Pain, Moderate (4-6) Last Admin: 10/28/17 11:02 Dose: 2 mg Ondansetron HCl (Zofran) 4 mg IV Q8H PRN PRN Reason: N/V unrelieved by Babak Last Admin: 10/28/17 03:27 Dose: 4 mg Oxycodone/Acetaminophen (Percocet 5/325) 1 tab PO Q6H PRN PRN Reason: Pain, Moderate (4-6) Exam - Constitutional Vitals: Temp Pulse Resp BP Pulse Ox 101.2 F H 113 H 26 H 116/63 96 10/28/17 05:05 10/28/17 14:50 10/28/17 14:50 10/28/17 14:50 10/28/17 14:50 Results - Labs CBC & Chem 7: 10/28/17 05:13 10/28/17 05:13 Labs: Abnormal lab results 10/27/17 10/27/17 10/27/17 Range/Units 18:05 20:30 20:30 WBC 22.7 H (4.5-11.0) K/mm3 MCV 78 L (79-97) fl MCH 24 L (28-32) pg RDW 18.9 H (13.2-15.2) % Seg Neuts % (Manual) 95.0 H (40.0-70.0) % Lymphocytes % (Manual) 4.0 L (13.4-35.0) % Monocytes % (Manual) (0.0-7.3) % Seg Neutrophils # Man 21.6 H (1.8-7.7) K/mm3 Lymphocytes # (Manual) 0.9 L (1.2-5.4) K/mm3 Monocytes # (Manual) (0.0-0.8) K/mm3 POC ABG pH (7.35-7.45) POC ABG pO2 (80-105) VBG pH (7.320-7.420) Potassium 2.8 L* (3.6-5.0) mmol/L Carbon Dioxide (22-30) mmol/L Creatinine 1.6 H (0.7-1.2) mg/dL Glucose 122 H (65-100) mg/dL POC Glucose 153 H (70-105) Lactic Acid (0.7-2.0) mmol/L Magnesium (1.7-2.3) mg/dL Total Bilirubin 1.40 H (0.1-1.2) mg/dL AST 98 H (5-40) units/L NT-Pro-B Natriuret Pep (0-450) pg/mL Albumin 3.0 L (3.9-5) g/dL Urine WBC (Auto) (0.0-6.0) /HPF U Epithel Cells (Auto) (0-13.0) /HPF 10/27/17 10/27/17 10/27/17 Range/Units 21:57 22:55 22:55 WBC (4.5-11.0) K/mm3 MCV (79-97) fl MCH (28-32) pg RDW (13.2-15.2) % Seg Neuts % (Manual) (40.0-70.0) % Lymphocytes % (Manual) (13.4-35.0) % Monocytes % (Manual) (0.0-7.3) % Seg Neutrophils # Man (1.8-7.7) K/mm3 Lymphocytes # (Manual) (1.2-5.4) K/mm3 Monocytes # (Manual) (0.0-0.8) K/mm3 POC ABG pH (7.35-7.45) POC ABG pO2 (80-105) VBG pH (7.320-7.420) Potassium (3.6-5.0) mmol/L Carbon Dioxide (22-30) mmol/L Creatinine (0.7-1.2) mg/dL Glucose (65-100) mg/dL POC Glucose (70-105) Lactic Acid 6.30 H* (0.7-2.0) mmol/L Magnesium 1.40 L (1.7-2.3) mg/dL Total Bilirubin (0.1-1.2) mg/dL AST (5-40) units/L NT-Pro-B Natriuret Pep 528.8 H (0-450) pg/mL Albumin (3.9-5) g/dL Urine WBC (Auto) (0.0-6.0) /HPF U Epithel Cells (Auto) (0-13.0) /HPF 10/27/17 10/27/17 10/28/17 Range/Units 22:55 Unknown 05:13 WBC 28.4 H (4.5-11.0) K/mm3 MCV (79-97) fl MCH 24 L (28-32) pg RDW 19.0 H (13.2-15.2) % Seg Neuts % (Manual) (40.0-70.0) % Lymphocytes % (Manual) 10.0 L (13.4-35.0) % Monocytes % (Manual) 10.0 H (0.0-7.3) % Seg Neutrophils # Man 18.3 H (1.8-7.7) K/mm3 Lymphocytes # (Manual) (1.2-5.4) K/mm3 Monocytes # (Manual) 2.8 H (0.0-0.8) K/mm3 POC ABG pH (7.35-7.45) POC ABG pO2 (80-105) VBG pH 7.199 L* (7.320-7.420) Potassium (3.6-5.0) mmol/L Carbon Dioxide (22-30) mmol/L Creatinine (0.7-1.2) mg/dL Glucose (65-100) mg/dL POC Glucose (70-105) Lactic Acid (0.7-2.0) mmol/L Magnesium (1.7-2.3) mg/dL Total Bilirubin (0.1-1.2) mg/dL AST (5-40) units/L NT-Pro-B Natriuret Pep (0-450) pg/mL Albumin (3.9-5) g/dL Urine WBC (Auto) 23.0 H (0.0-6.0) /HPF U Epithel Cells (Auto) 28.0 H (0-13.0) /HPF 10/28/17 10/28/17 10/28/17 Range/Units 05:13 06:05 14:45 WBC (4.5-11.0) K/mm3 MCV (79-97) fl MCH (28-32) pg RDW (13.2-15.2) % Seg Neuts % (Manual) (40.0-70.0) % Lymphocytes % (Manual) (13.4-35.0) % Monocytes % (Manual) (0.0-7.3) % Seg Neutrophils # Man (1.8-7.7) K/mm3 Lymphocytes # (Manual) (1.2-5.4) K/mm3 Monocytes # (Manual) (0.0-0.8) K/mm3 POC ABG pH 7.345 L (7.35-7.45) POC ABG pO2 61 L (80-105) VBG pH (7.320-7.420) Potassium (3.6-5.0) mmol/L Carbon Dioxide 19 L (22-30) mmol/L Creatinine 2.1 H (0.7-1.2) mg/dL Glucose 140 H (65-100) mg/dL POC Glucose (70-105) Lactic Acid 3.00 H* (0.7-2.0) mmol/L Magnesium (1.7-2.3) mg/dL Total Bilirubin (0.1-1.2) mg/dL AST (5-40) units/L NT-Pro-B Natriuret Pep (0-450) pg/mL Albumin (3.9-5) g/dL Urine WBC (Auto) (0.0-6.0) /HPF U Epithel Cells (Auto) (0-13.0) /HPF
[2017-10-29] MEDS: ZOSYN/NS 4.5GM/100ML 4.5 GM/100 ML VIAL IV SCH ×4 (00:44→22:37)
[2017-10-29] MEDS: DDAVP PO SCH (00:45)
--- NOTE | 2017-10-29 02:26 | Consultation ---
RENAL CONSULTATION REASON FOR CONSULTATION: Acute renal failure. HISTORY OF PRESENT ILLNESS: This 47-year-old female was brought to the Emergency Room for altered mental status. Unable to obtain any information from the patient at present time who is on BiPAP. Discussed with patient's daughter at bedside who reports that patient has been feeling sick since Thursday throwing up, Thursday also throwing up and got confused and started having shortness of breath. No diarrhea. The patient has a history of pituitary tumor, underwent surgery at [facility] about 2 years ago. I spoke with the patient's nurse, who reports that after placing the Weems catheter 900 mL of urine came out. Since then she has been urinating good. The patient is followed by Dr. Huff and Dr. CORTEZ for her medical problems per daughter. In the ER, she was reported to have hypotension needing pressure support. PAST MEDICAL HISTORY: As above. PERSONAL HISTORY: No history of smoking, alcohol, or drug abuse. FAMILY HISTORY: Hypertension. No history of kidney disease. ALLERGIES: TO HEPARIN. HOME MEDICATIONS: Synthroid 175 mcg once a day, potassium chloride 20 mEq p.o. b.i.d., hydrocortisone 10 mg p.o. b.i.d. REVIEW OF SYSTEMS: Unable to obtain. PHYSICAL EXAMINATION: GENERAL: The patient is lethargic, on BiPAP. VITAL SIGNS: Blood pressure 124/70, pulse 107, afebrile. EYES: Pupils reactive. NECK: No JVD, no thyroid enlargement. LUNGS: Diminished breath sounds in bases. HEART: S1, S2 regular and tachycardic. ABDOMEN: Soft, bowel sounds present, nontender. EXTREMITIES: 1+ edema. LABORATORY DATA: WBC 28.4, hemoglobin 11.5, hematocrit 37.2, platelets 261. Sodium 145, potassium 4.5, chloride 103, CO2 of 19, BUN 11, creatinine 2.1, glucose 140. Creatinine was 1.6 on 10/27/2017, potassium was 2.8 on 10/27/2017. pH 7.34, pCO2 of 37.5, pO2 of 61. IMAGING STUDIES: Chest x-ray reported to have patchy bibasilar airspace opacities. Small bilateral effusions. ASSESSMENT AND PLAN: 1. Acute renal failure, most likely prerenal azotemia, rule out other cause. 2. Acute respiratory failure, currently on BiPAP. 3. Pneumonia. 4. Possible sepsis/ lactic acidosis. 5. Status post pituitary surgery/cortisol deficiency. 6. Hypothyroidism. 7. Leukocytosis. 8. Pyuria. Agree with pressure support and IV fluids as ordered. Stress dose of steroids. Adjust medications per renal function. Check on blood and urine cultures. Noted elevated AST of 98, recheck. The patient's urine specific gravity is noted to 1.023. JOB# [id number] LARRY/ISAIAS DOWNING
[2017-10-29 04:53] LABS: Basophils % (Auto) 0.1 % (0.0-1.8); Eosinophils % (Auto) 0.3 % (0.0-4.3); Hematocrit 32.2 % (30.3-42.9); Hemoglobin 10.2 gm/dl (10.1-14.3); Lymphocytes % (Auto) 6.5 % (13.4-35.0); Mean Corpuscular HGB Conc 32 % (30-34); Mean Corpuscular Volume 78 fl (79-97); Monocytes # (Auto) 0.7 K/mm3 (0.0-0.8); Monocytes % (Auto) 4.1 % (0.0-7.3); Platelet Count 205 K/mm3 (140-440); Red Blood Count 4.12 M/mm3 (3.65-5.03); Red Cell Distribution Width 19.3 % (13.2-15.2)
[2017-10-29 05:04] LABS: Calcium 8.3 mg/dL (8.4-10.2)
[2017-10-29 05:16] LABS: Mean Corpuscular Hemoglobin 25 pg (28-32)
[2017-10-29] MEDS: SYNTHROID IV SCH (06:09)
[2017-10-29] MEDS: D5/0.45NS 1,000 ML IV SCH (06:19)
--- NOTE | 2017-10-29 09:30 | Progress Note ---
Assessment and Plan - Patient Problems (1) Acute renal failure Current Visit: Yes Status: Acute Plan to address problem: most likely prerenal. Scr down to 1.3 today. H/O surgery for pituitary adenoma. Monitor urine output and electrolytes (2) Acute respiratory failure Current Visit: Yes Status: Acute (3) Bilateral pneumonia Current Visit: Yes Status: Acute (4) Leukocytosis Current Visit: Yes Status: Acute (5) Sepsis Current Visit: Yes Status: Acute (6) Encephalopathy Current Visit: Yes Status: Acute (7) Hypernatremia Current Visit: Yes Status: Acute Plan to address problem: H/O pituitary surgery, monitor Sodium levels. Urine SG-1.023. Check urine lytes , urine osmolality Subjective Date of service: 10/29/17 Interval history: on BiPAP, sleepy, not following commands Objective - Vital Signs Vital signs: Vital Signs - 12hr 10/28/17 10/28/17 10/28/17 21:45 21:57 22:00 Temperature Pulse Rate 106 H 106 H 106 H Respiratory 28 H 21 28 H Rate Blood Pressure 99/46 99/46 104/52 O2 Sat by Pulse 95 95 94 Oximetry 10/28/17 10/28/17 10/28/17 22:11 23:30 23:54 Temperature Pulse Rate 107 H 106 H Respiratory 24 23 25 H Rate Blood Pressure 104/52 O2 Sat by Pulse 95 98 98 Oximetry 10/29/17 10/29/17 10/29/17 00:00 00:11 00:21 Temperature Pulse Rate 105 H 104 H 104 H Respiratory 23 23 22 Rate Blood Pressure 108/58 108/58 108/58 O2 Sat by Pulse 98 97 98 Oximetry 10/29/17 10/29/17 10/29/17 00:31 00:41 00:51 Temperature Pulse Rate 102 H 102 H 103 H Respiratory 24 22 22 Rate Blood Pressure 108/58 108/58 108/58 O2 Sat by Pulse 98 98 98 Oximetry 10/29/17 10/29/17 10/29/17 01:00 01:11 01:21 Temperature Pulse Rate 101 H 99 H 101 H Respiratory 25 H 21 22 Rate Blood Pressure 101/58 101/58 101/58 O2 Sat by Pulse 98 98 99 Oximetry 10/29/17 10/29/17 10/29/17 01:31 01:41 01:51 Temperature Pulse Rate 99 H 98 H 97 H Respiratory 21 26 H 20 Rate Blood Pressure 101/58 101/58 101/58 O2 Sat by Pulse 99 99 99 Oximetry 10/29/17 10/29/17 10/29/17 02:00 02:11 02:21 Temperature Pulse Rate 96 H 97 H 96 H Respiratory 22 22 23 Rate Blood Pressure 103/58 103/58 103/58 O2 Sat by Pulse 99 99 99 Oximetry 10/29/17 10/29/17 10/29/17 02:31 02:41 02:51 Temperature Pulse Rate 96 H 96 H 96 H Respiratory 25 H 22 22 Rate Blood Pressure 103/58 103/58 103/58 O2 Sat by Pulse 99 99 99 Oximetry 10/29/17 10/29/17 10/29/17 03:00 03:11 03:21 Temperature Pulse Rate 94 H 96 H 98 H Respiratory 22 22 23 Rate Blood Pressure 117/60 117/60 117/60 O2 Sat by Pulse 99 99 98 Oximetry 10/29/17 10/29/17 10/29/17 03:30 03:31 03:41 Temperature Pulse Rate 96 H 95 H Respiratory 21 23 23 Rate Blood Pressure 117/60 117/60 O2 Sat by Pulse 96 98 100 Oximetry 10/29/17 10/29/17 10/29/17 03:51 04:00 04:11 Temperature 99.6 F Pulse Rate 97 H 96 H 96 H Respiratory 23 21 21 Rate Blood Pressure 117/60 116/67 116/67 O2 Sat by Pulse 98 98 99 Oximetry 10/29/17 10/29/17 10/29/17 04:21 04:31 04:41 Temperature Pulse Rate 96 H 95 H 96 H Respiratory 22 22 23 Rate Blood Pressure 116/67 116/67 116/67 O2 Sat by Pulse 99 100 99 Oximetry 10/29/17 10/29/17 04:51 07:50 Temperature Pulse Rate 96 H 93 H Respiratory 23 27 H Rate Blood Pressure 116/67 117/68 O2 Sat by Pulse 98 99 Oximetry - General Appearance General appearance: obese EENT: mucous membranes dry Neck: no JVD Respiratory: Present: Decreased Breath Sounds Cardiology: regular Gastrointestinal: normoactive bowel sounds Musculoskeletal: other (no edema) - Lab 10/29/17 04:18 10/29/17 04:18 Most recent lab results Calcium 8.3 mg/dL (8.4-10.2) L 10/29/17 04:18 Magnesium 1.40 mg/dL (1.7-2.3) L 10/27/17 21:57
[2017-10-29] MEDS: LEVAQUIN 750MG/150ML 750 MG/150 ML BAG IV SCH (09:47)
[2017-10-29] MEDS: LOVENOX SUB-Q SCH (09:47)
--- NOTE | 2017-10-29 12:09 | Consultation ---
History of Present Illness Consult date: 10/29/17 Requesting physician: NATACHA HOUSE Reason for consult: other (Hypotension) History of present illness: PULMONARY/CCM CONSULT NOTE (Full dictation # [id number]) Please see dictated notes for full details Medications and Allergies Allergies Allergy/AdvReac Type Severity Reaction Status Date / Time heparin Allergy Unknown Verified 10/28/17 18:40 Home Medications Medication Instructions Recorded Confirmed Last Taken Type Levothyroxine Sodium [Synthroid] 175 mcg PO QDAY 03/25/16 10/28/17 10/26/17 History Potassium Chloride [K-Dur] 20 meq PO BID 03/25/16 10/28/17 10/26/17 History Hydrocortisone [Cortef TAB] 10 mg PO BID 10/28/17 10/28/17 10/26/17 History Active Meds: Active Medications Acetaminophen (Tylenol) 650 mg PO Q4H PRN PRN Reason: Pain MILD(1-3)/Fever >100.5/MCDOWELL Bisacodyl (Dulcolax) 10 mg UT QDAY PRN PRN Reason: Constipation unrelieved by MOM Desmopressin Acetate (Ddavp) 0.1 mg PO BID ROCKY Last Admin: 10/29/17 00:45 Dose: Not Given Enoxaparin Sodium (Lovenox) 40 mg SUB-Q QDAY@1000 ROCKY Last Admin: 10/29/17 09:47 Dose: 40 mg Hydrocortisone Sodium Succinate (Solu-Cortef) 100 mg IV Q8HR ROCKY Last Admin: 10/29/17 06:10 Dose: 100 mg Levofloxacin/Dextrose (Levaquin 750mg/150ml) 750 mg in 150 mls @ 100 mls/hr IV Q24HR ROCKY PRN Reason: Protocol Last Admin: 10/29/17 09:47 Dose: 100 mls/hr Vasopressin 20 unit/ Sodium (Chloride) 101 mls @ 9.09 mls/hr IV TITR ROCKY; 0.03 UNITS/MIN PRN Reason: Protocol Last Titration: 10/28/17 21:03 Dose: Infused Dextrose/Sodium Chloride (D5/0.45ns) 1,000 mls @ 100 mls/hr IV DIRECT ROCKY Last Admin: 10/29/17 06:19 Dose: 100 mls/hr Piperacillin Sod/Tazobactam Sod (Zosyn/Ns 4.5gm/100ml) 4.5 gm in 100 mls @ 200 mls/hr IV Q8HR ROCKY PRN Reason: Protocol Levothyroxine Sodium (Synthroid) 100 mcg IV DAILY@0600 REPLACED BY [facility] Last Admin: 10/29/17 06:09 Dose: 100 mcg Magnesium Hydroxide (Milk Of Magnesia) 30 ml PO Q4H PRN PRN Reason: Constipation Morphine Sulfate (Morphine) 2 mg IV Q4H PRN PRN Reason: Pain, Moderate (4-6) Last Admin: 10/28/17 11:02 Dose: 2 mg Ondansetron HCl (Zofran) 4 mg IV Q8H PRN PRN Reason: N/V unrelieved by Reglan Last Admin: 10/28/17 03:27 Dose: 4 mg Physical Examination Vital signs: Vital Signs Temp Pulse BP Pulse Ox 97.7 F 130 H 118/80 94 10/27/17 18:09 10/27/17 18:09 10/27/17 18:09 10/27/17 18:09 Results - Laboratory Findings CBC and BMP: 10/29/17 04:18 10/29/17 04:18 ABG POC ABG pH 7.345 (7.35-7.45) L 10/28/17 06:05 POC ABG pCO2 37.5 (35-45) 10/28/17 06:05 POC ABG pO2 61 (80-105) L 10/28/17 06:05 POC ABG HCO3 20.5 10/28/17 06:05 POC ABG Total CO2 22 10/28/17 06:05 POC ABG O2 Sat 90 10/28/17 06:05 Abnormal lab findings: Abnormal Labs 10/27/17 10/27/17 10/27/17 18:05 20:30 20:30 WBC 22.7 H MCV 78 L MCH 24 L RDW 18.9 H Lymph % (Auto) Lymph # Seg Neutrophils % Seg Neuts % (Manual) 95.0 H Lymphocytes % (Manual) 4.0 L Monocytes % (Manual) Seg Neutrophils # Seg Neutrophils # Man 21.6 H Lymphocytes # (Manual) 0.9 L Monocytes # (Manual) POC ABG pH POC ABG pO2 VBG pH Potassium 2.8 L* Carbon Dioxide BUN Creatinine 1.6 H Glucose 122 H POC Glucose 153 H Lactic Acid Calcium Magnesium Total Bilirubin 1.40 H AST 98 H NT-Pro-B Natriuret Pep Albumin 3.0 L Urine WBC (Auto) U Epithel Cells (Auto) 10/27/17 10/27/17 10/27/17 21:57 22:55 22:55 WBC MCV MCH RDW Lymph % (Auto) Lymph # Seg Neutrophils % Seg Neuts % (Manual) Lymphocytes % (Manual) Monocytes % (Manual) Seg Neutrophils # Seg Neutrophils # Man Lymphocytes # (Manual) Monocytes # (Manual) POC ABG pH POC ABG pO2 VBG pH Potassium Carbon Dioxide BUN Creatinine Glucose POC Glucose Lactic Acid 6.30 H* Calcium Magnesium 1.40 L Total Bilirubin AST NT-Pro-B Natriuret Pep 528.8 H Albumin Urine WBC (Auto) U Epithel Cells (Auto) 10/27/17 10/27/17 10/28/17 22:55 Unknown 05:13 WBC 28.4 H MCV MCH 24 L RDW 19.0 H Lymph % (Auto) Lymph # Seg Neutrophils % Seg Neuts % (Manual) Lymphocytes % (Manual) 10.0 L Monocytes % (Manual) 10.0 H Seg Neutrophils # Seg Neutrophils # Man 18.3 H Lymphocytes # (Manual) Monocytes # (Manual) 2.8 H POC ABG pH POC ABG pO2 VBG pH 7.199 L* Potassium Carbon Dioxide BUN Creatinine Glucose POC Glucose Lactic Acid Calcium Magnesium Total Bilirubin AST NT-Pro-B Natriuret Pep Albumin Urine WBC (Auto) 23.0 H U Epithel Cells (Auto) 28.0 H 10/28/17 10/28/17 10/28/17 05:13 06:05 14:45 WBC MCV MCH RDW Lymph % (Auto) Lymph # Seg Neutrophils % Seg Neuts % (Manual) Lymphocytes % (Manual) Monocytes % (Manual) Seg Neutrophils # Seg Neutrophils # Man Lymphocytes # (Manual) Monocytes # (Manual) POC ABG pH 7.345 L POC ABG pO2 61 L VBG pH Potassium Carbon Dioxide 19 L BUN Creatinine 2.1 H Glucose 140 H POC Glucose Lactic Acid 3.00 H* Calcium Magnesium Total Bilirubin AST NT-Pro-B Natriuret Pep Albumin Urine WBC (Auto) U Epithel Cells (Auto) 10/29/17 10/29/17 10/29/17 04:18 04:18 06:33 WBC 15.9 H MCV 78 L MCH 25 L RDW 19.3 H Lymph % (Auto) 6.5 L Lymph # 1.0 L Seg Neutrophils % 89.0 H Seg Neuts % (Manual) Lymphocytes % (Manual) Monocytes % (Manual) Seg Neutrophils # 14.2 H Seg Neutrophils # Man Lymphocytes # (Manual) Monocytes # (Manual) POC ABG pH POC ABG pO2 VBG pH Potassium Carbon Dioxide BUN 18 H Creatinine 1.3 H Glucose 207 H POC Glucose 221 H Lactic Acid Calcium 8.3 L Magnesium Total Bilirubin AST NT-Pro-B Natriuret Pep Albumin Urine WBC (Auto) U Epithel Cells (Auto)
[2017-10-29] MEDS ORDERED: MAGNESIUM SULFATE 2GM/50ML 2 GM/50 ML BAG IV ONE (15:00)
--- NOTE | 2017-10-29 16:12 | Progress Note ---
Assessment and Plan Sepsis likely due to CAP and UTI - cont abx follow cx Shock - likely from sepsis with underlying h/o corticosteroid deficiency - s/p levophed and vasopressin, - cont solucortef 100mg q8h History of pituitary tumor - s/p resection 2years ago - cont synthroid, steroid and Ddavp h/o cortisol insufficiency/ hypothyroidism/iatrogenic DI - cont supplement iv route as pt on BiPAP and did not pass seallow study Acute respiratory failure - likely from PNA, cont bipap - nebulizer, steroid - CC following NIKIA - likely vasomotor nephropathy from sepsis - cont iv fluid, consulted renal - renal kidneyfunction improving Morbid obesity - nutrition consult physical exam: Gen. appearance: Patient lying in bed in no acute distress, on bipap HEENT: Normocephalic/atraumatic, pupils equal round reactive to light, no scleral icterus, no JVD or thyromegaly or nodule, neck is supple, mucous membrane moist, no erythema or exudate Heart: S1-S2, tachycardic Lungs: Crackles bilateral breathing comfortable Abdomen: Positive bowel sounds, nontender, nondistended, no organomegaly Extremities: No edema, cyanosis, clubbing Neuro:: sedated now Skin: No rash, nodules, warm dry The high probability of a clinically significant, sudden or life threatening deterioration of the system(s) required my full and direct attention, intervention and personal management. The aggregate critical care time was [40] minutes. This time is in addition to time spent performing reported procedures but includes the following: [x] Data Review and interpretation [x] Patient assessment and monitoring of vital signs [x] Documentation [x] Medication orders and management Subjective Date of service: 10/29/17 Interval history: patient seen and examined having large amount of urine output she is on biPAP, remained confused and agitated off all pressors since last night Objective - Constitutional Vitals: Vital Signs - 12hr 10/29/17 10/29/17 10/29/17 04:21 04:31 04:41 Temperature Pulse Rate 96 H 95 H 96 H Respiratory 22 22 23 Rate Blood Pressure 116/67 116/67 116/67 O2 Sat by Pulse 99 100 99 Oximetry 10/29/17 10/29/17 10/29/17 04:51 05:01 05:11 Temperature Pulse Rate 96 H 96 H 96 H Respiratory 23 23 22 Rate Blood Pressure 116/67 116/67 116/67 O2 Sat by Pulse 98 98 99 Oximetry 10/29/17 10/29/17 10/29/17 05:21 05:31 05:41 Temperature Pulse Rate 96 H 96 H 97 H Respiratory 21 23 19 Rate Blood Pressure 116/67 116/67 116/67 O2 Sat by Pulse 99 98 99 Oximetry 10/29/17 10/29/17 10/29/17 05:51 06:01 06:11 Temperature Pulse Rate 96 H 96 H 95 H Respiratory 23 22 25 H Rate Blood Pressure 116/67 116/67 116/67 O2 Sat by Pulse 99 100 99 Oximetry 10/29/17 10/29/17 10/29/17 06:21 06:31 06:41 Temperature Pulse Rate 95 H 97 H 97 H Respiratory 22 23 24 Rate Blood Pressure 125/64 125/64 125/64 O2 Sat by Pulse 97 95 98 Oximetry 10/29/17 10/29/17 10/29/17 06:50 07:00 07:10 Temperature 99.2 F Pulse Rate 96 H 96 H 96 H Respiratory 24 24 25 H Rate Blood Pressure 125/64 117/68 125/64 O2 Sat by Pulse 97 97 97 Oximetry 10/29/17 10/29/17 10/29/17 07:20 07:30 07:40 Temperature Pulse Rate 96 H 94 H 95 H Respiratory 25 H 24 24 Rate Blood Pressure 125/64 125/64 125/64 O2 Sat by Pulse 97 99 98 Oximetry 10/29/17 10/29/17 10/29/17 07:50 08:00 08:05 Temperature Pulse Rate 94 H 92 H Respiratory 23 22 22 Rate Blood Pressure 125/64 120/68 O2 Sat by Pulse 94 99 99 Oximetry 10/29/17 10/29/17 10/29/17 08:10 08:20 08:30 Temperature Pulse Rate 93 H 93 H 93 H Respiratory 22 24 19 Rate Blood Pressure 120/68 120/68 120/68 O2 Sat by Pulse 99 98 99 Oximetry 10/29/17 10/29/17 10/29/17 08:40 08:50 09:00 Temperature Pulse Rate 94 H 93 H 93 H Respiratory 24 18 18 Rate Blood Pressure 120/68 120/68 122/74 O2 Sat by Pulse 99 99 99 Oximetry 10/29/17 10/29/17 10/29/17 09:10 09:20 09:30 Temperature Pulse Rate 93 H 93 H 92 H Respiratory 18 18 19 Rate Blood Pressure 122/74 122/74 122/74 O2 Sat by Pulse 99 99 99 Oximetry 10/29/17 10/29/17 10/29/17 09:40 09:50 10:00 Temperature Pulse Rate 93 H 92 H 86 Respiratory 20 20 18 Rate Blood Pressure 122/74 122/74 114/65 O2 Sat by Pulse 99 99 98 Oximetry 10/29/17 10/29/17 10/29/17 10:10 10:20 10:30 Temperature Pulse Rate 86 85 84 Respiratory 18 18 19 Rate Blood Pressure 114/65 114/65 114/65 O2 Sat by Pulse 99 98 99 Oximetry 10/29/17 10/29/17 10/29/17 10:40 10:50 11:00 Temperature 99.2 F Pulse Rate 91 H 92 H 97 H Respiratory 18 20 16 Rate Blood Pressure 114/65 114/65 114/65 O2 Sat by Pulse 100 99 99 Oximetry 10/29/17 10/29/17 10/29/17 11:10 11:20 11:30 Temperature Pulse Rate 94 H 94 H 102 H Respiratory 22 17 21 Rate Blood Pressure 153/91 153/91 153/91 O2 Sat by Pulse 99 100 85 Oximetry 10/29/17 10/29/17 10/29/17 11:35 11:40 11:50 Temperature Pulse Rate 95 H 96 H Respiratory 20 19 19 Rate Blood Pressure 153/91 153/91 O2 Sat by Pulse 96 96 96 Oximetry 10/29/17 10/29/17 10/29/17 12:00 12:10 12:20 Temperature Pulse Rate 108 H 98 H 106 H Respiratory 22 18 24 Rate Blood Pressure 153/91 125/71 125/71 O2 Sat by Pulse 97 96 99 Oximetry 10/29/17 10/29/17 10/29/17 12:30 12:40 12:50 Temperature Pulse Rate 107 H 97 H 102 H Respiratory 24 19 24 Rate Blood Pressure 125/71 125/71 125/71 O2 Sat by Pulse 97 96 100 Oximetry 10/29/17 10/29/17 10/29/17 13:00 13:10 15:44 Temperature Pulse Rate 99 H 100 H 98 H Respiratory 22 18 19 Rate Blood Pressure 135/76 135/76 125/71 O2 Sat by Pulse 98 100 96 Oximetry - Labs CBC & Chem 7: 10/30/17 10:33 10/30/17 10:33 Labs: Abnormal lab results 10/29/17 10/29/17 10/29/17 Range/Units 04:18 04:18 06:33 WBC 15.9 H (4.5-11.0) K/mm3 MCV 78 L (79-97) fl MCH 25 L (28-32) pg RDW 19.3 H (13.2-15.2) % Lymph % (Auto) 6.5 L (13.4-35.0) % Lymph # 1.0 L (1.2-5.4) K/mm3 Seg Neutrophils % 89.0 H (40.0-70.0) % Seg Neutrophils # 14.2 H (1.8-7.7) K/mm3 POC ABG pH (7.35-7.45) BUN 18 H (7-17) mg/dL Creatinine 1.3 H (0.7-1.2) mg/dL Glucose 207 H (65-100) mg/dL POC Glucose 221 H (70-105) Calcium 8.3 L (8.4-10.2) mg/dL C-Reactive Protein (0.00-1.30) mg/dL TSH (0.270-4.200) mlU/mL 10/29/17 10/29/17 10/29/17 Range/Units 14:37 14:37 15:00 WBC (4.5-11.0) K/mm3 MCV (79-97) fl MCH (28-32) pg RDW (13.2-15.2) % Lymph % (Auto) (13.4-35.0) % Lymph # (1.2-5.4) K/mm3 Seg Neutrophils % (40.0-70.0) % Seg Neutrophils # (1.8-7.7) K/mm3 POC ABG pH 7.456 H (7.35-7.45) BUN (7-17) mg/dL Creatinine (0.7-1.2) mg/dL Glucose (65-100) mg/dL POC Glucose (70-105) Calcium (8.4-10.2) mg/dL C-Reactive Protein 27.20 H (0.00-1.30) mg/dL TSH < 0.005 L (0.270-4.200) mlU/mL
--- NOTE | 2017-10-30 00:50 | Consultation ---
CONSULTING PHYSICIAN: Dr. Mccrary. REASON FOR CONSULTATION: Acute respiratory failure, hypotension. CHIEF COMPLAINT AND HISTORY OF PRESENT ILLNESS: The patient is a 47-year-old -[place] female with past medical history significant for hypopituitarism, who came into the Emergency Room complaining of cough and generalized malaise for about a day. It was nonproductive, of course, it was harsh in quality, associated with nausea and multiple episodes of nonbilious, nonbloody emesis. She has also been complaining of reduced appetite, reduced oral intake. She denied fevers, chills, otherwise, denied any sick contacts. Denied any bleeding gross blood loss. She denies recent oral contraceptive use. No history of venous thromboembolic phenomenon. She was evaluated in the Emergency Room and amongst other things, was found to be hypoxemic, tachycardic with systemic inflammatory response syndrome. She also appeared to be hypoventilated. She was placed on bilevel positive air pressure ventilation therapy. She was diagnosed with pneumonia. ICU admission was requested for the episodes of hypotension and the continuous BiPAP requirements. When I stopped by to see her, she remained on the BiPAP machine, difficult to arouse, and not following commands. With regards to her tobacco use/abuse history, she was described as a never smoker. This really is as much of the history of presentation as I have. PAST MEDICAL HISTORY: History of pituitary tumor, history of hypopituitarism. She is obese. PAST SURGICAL HISTORY: She has had a resection of the pituitary tumor, I believe about a couple years ago the records as mentioned. FAMILY AND SOCIAL HISTORY: Apparently lives in the community. She had denied alcohol, tobacco, or illicit drug use or abuse. There is a family history of hypertension. REVIEW OF SYSTEMS: Unobtainable secondary to patient's medical and mental condition since she has been here, no gross hematochezia or melena, no gross hematuria. She had the emesis in the ER. No seizures have been reported. REVIEW OF SYSTEMS: Otherwise, unobtainable or as in the body of history above. PHYSICAL EXAMINATION: VITAL SIGNS: At presentation in the emergency room, she was afebrile, temperature 97.7 degrees Fahrenheit with a pulse of 130, respiratory rate of 18, went as high as 49, and blood pressure 118/80, oxygen sats were 94%, inspired oxygen concentration was not recorded. Since she has been in the hospital, she has had a T-max of 101.2. GENERAL EXAM: She is an obese -[place] female, normocephalic. She has a large neck circumference, atraumatic. Nonresponsive on the BiPAP mask, in mild to moderate respiratory distress without accessory muscle use. HEAD, EYES, EARS, NOSE AND THROAT: She is anicteric. No conjunctival erythema. Grossly, no palpable lymph nodes in the supraclavicular or submandibular lymph node chains. No gross jugular venous distention. She has the BiPAP mask on, and I am unable to evaluate the oropharynx at this point. LUNGS: Auscultation of the lungs, diminished bilateral breath sounds, bibasilar inspiratory rales. No wheezing. HEART: Heart sounds 1 and 2 are heard. They were regular in rate and rhythm at the time of my evaluation. No rubs, no murmurs. ABDOMEN: Soft. Bowel sounds are positive. Did not appear tender. No palpable hepatosplenomegaly. EXTREMITIES: Without overt digital clubbing or cyanosis. Trace pedal edema. Dorsalis pedis pulses are palpable bilaterally, 2+. Skin was of normal turgor, no rash, no cellulitis. NEUROLOGIC: Pupils were equal and round, about 3 mm, sluggishly reactive to light. Extraocular muscle movements could not be assessed. She had spontaneous movements to all the extremities. LABORATORY DATA: From my review are as follows: Admission white count 22,700 with hemoglobin of 12.2, hematocrit of 39.3, platelet count of 254,000. No significant band forms at presentation. ABG then was 7.35, with a pCO2 of 38, pO2 of 61, on 4 liters nasal cannula. Venous blood gas initially showed a pH of 7.20. Serum sodium was 144, at admission with potassium of 2.8, chloride 104, bicarbonate 22, BUN 8, creatinine 1.6, glucose was 122. Lactic acid level was 6.3, magnesium was low at 1.4. Total bilirubin was up at 1.4. BNP was also up at 528. Urinalysis showed moderate leukocyte esterase with 23 white cells per high-power field. Influenza screen was negative. White count is down to 15.9 today. Her BUN is 18, creatinine is 1.3. Potassium is pending as is the sodium. Lactic acid level was down to 3.0 yesterday. Blood cultures and urine culture has just been sent, no growth to date. Chest x-ray was done. I have reviewed the chest x-ray, it essentially shows hypoventilation, it is rotated to the right. It shows bibasilar I think moreso atelectasis and effusions or infiltrates. No gross pneumothorax, no gross bony fracture that I can see, and I cannot rule out some element of pleural effusions. ASSESSMENT: 1. Sepsis syndrome with hypotension. Mean arterial pressures were as low as 51 at admission. 2. Bilateral pulmonary infiltrates, pneumonia versus atelectasis. 3. Acute encephalopathy, possibly on chronic. 4. Hypopituitarism. 5. Morbid obesity. 6. Metabolic acidosis with elevated lactic acid levels. 7. Urinary tract infection. 8. Acute kidney injury. PLAN: 1. A stat arterial blood gas will be done. I will see if we can liberate her from BiPAP therapy. We will use as scheduled at bedtime for potential obstructive sleep apnea as needed during the day. 2. Oxygen will be weaned to keep sats greater than or equal to about 90%. Aspiration precautions will be maintained. Bronchodilators will be on a as needed basis. We will go ahead and also continue gentle volume hydration for prerenal looking numbers. I believe Nephrology has been consulted and we will defer to them for management of electrolytes. We will continue empiric antibiotic therapy and deescalate based on results of clinical and microbiologic data. I will go ahead and order a CRP level as well as repeat the lactic acid level just to ensure that she has got an adequate resuscitation. Neurology evaluation will be of benefit in this lady and I will go ahead and order a CT of her brain if her mental status does not improve. There were no lateralizing signs at this point, but I could not get her aroused during my evaluation. We will see if there is any significant hypercapnia that might explain that. Her AST is elevated. I will get an ammonia level and make sure that again we are not dealing with hyperammonemia. I will correct her magnesium, which is at 1.40. The magnesium is unclear if she has received any magnesium correction. Phosphorus level will also be checked. I should mention her urine test was negative. She is appropriately on gastrointestinal and deep venous thrombosis prophylaxis. Vasopressors will be started if mean arterial pressures fall below 60 mmHg. Flu and pneumonia vaccination will be per protocol. Again, I will keep in the back of my mind the possibility of venous thromboembolic phenomenon; however, the picture is not in keeping with that at this time. I think the x-ray explains reasons for her hypoxemia. Thank you very much for the consult. We will follow along. We will make further recommendations as picture progresses/becomes clearer. At this time, I spent about 30 to 35 minutes of critical care time without overlap excluding any procedural time that may be necessary. Finally, I should mention, we will get necessary endocrine studies, TSH level, random cortisol level, and plus or minus further testing. JOB# [id number] ALEX/ISAIAS DOWNING
[2017-10-30] MEDS: ZOSYN/NS 4.5GM/100ML 4.5 GM/100 ML VIAL IV SCH (05:53)
[2017-10-30] MEDS: SYNTHROID IV SCH (05:54)
[2017-10-30] MEDS: DDAVP PO SCH ×4 (10:10→22:00)
[2017-10-30 10:53] LABS: Mean Corpuscular HGB Conc 31 % (30-34); Mean Corpuscular Volume 77 fl (79-97); Platelet Count 210 K/mm3 (140-440); Red Blood Count 4.13 M/mm3 (3.65-5.03); Red Cell Distribution Width 18.9 % (13.2-15.2)
[2017-10-30 10:54] LABS: Mean Corpuscular Hemoglobin 24 pg (28-32)
[2017-10-30 11:12] LABS: BUN/Creatinine Ratio 22; Blood Urea Nitrogen 22 mg/dL (7-17); Calcium 8.6 mg/dL (8.4-10.2); Hemolysis Index 24
[2017-10-30] MEDS: LOVENOX SUB-Q SCH (11:27)
[2017-10-30] MEDS: LEVAQUIN 750MG/150ML 750 MG/150 ML BAG IV SCH (11:28)
[2017-10-30] MEDS: D5/0.45NS 1,000 ML IV SCH ×2 (11:31→20:40)
--- NOTE | 2017-10-30 13:37 | Progress Note ---
Assessment and Plan Sepsis syndrome with hypotension. Mean arterial pressures were as low as 51 at admission. Bilateral pulmonary infiltrates, pneumonia versus atelectasis. Acute encephalopathy, possibly on chronic. Hypopituitarism. Morbid obesity. Metabolic acidosis with elevated lactic acid levels. Urinary tract infection. Acute kidney injury - Subjective Date of service: 10/30/17 Interval history: Patient is seen today for: Seen and examined at bedside; 24hour events reviewed; nursing and respiratory care staff consulted; no adverse overnight events reported to me; Objective Vital Signs - 12hr 10/30/17 10/30/17 10/30/17 01:40 01:50 02:00 Temperature Pulse Rate 92 H 90 92 H Respiratory 28 H 29 H 20 Rate Blood Pressure 137/80 137/80 137/80 O2 Sat by Pulse 98 99 96 Oximetry 10/30/17 10/30/17 10/30/17 02:10 02:20 02:30 Temperature Pulse Rate 91 H 90 91 H Respiratory 29 H 28 H 20 Rate Blood Pressure 138/84 138/84 138/84 O2 Sat by Pulse 99 100 99 Oximetry 10/30/17 10/30/17 10/30/17 02:40 02:50 03:00 Temperature Pulse Rate 90 102 H 99 H Respiratory 25 H 24 18 Rate Blood Pressure 138/84 138/84 141/78 O2 Sat by Pulse 98 97 93 Oximetry 10/30/17 10/30/17 10/30/17 03:10 03:20 03:30 Temperature Pulse Rate 92 H 90 89 Respiratory 31 H 19 29 H Rate Blood Pressure 138/84 138/84 138/84 O2 Sat by Pulse 98 99 99 Oximetry 10/30/17 10/30/17 10/30/17 03:32 03:40 03:50 Temperature Pulse Rate 89 98 H 99 H Respiratory 19 24 21 Rate Blood Pressure 141/78 138/84 138/84 O2 Sat by Pulse 98 98 99 Oximetry 10/30/17 10/30/17 10/30/17 04:00 04:10 04:20 Temperature Pulse Rate 92 H 92 H 91 H Respiratory 28 H 27 H 29 H Rate Blood Pressure 140/71 140/71 140/71 O2 Sat by Pulse 93 99 99 Oximetry 10/30/17 10/30/17 10/30/17 04:30 04:40 04:50 Temperature Pulse Rate 92 H Respiratory 26 H Rate Blood Pressure 140/71 140/71 140/71 O2 Sat by Pulse 99 98 99 Oximetry 10/30/17 10/30/17 10/30/17 05:00 05:12 05:20 Temperature 99.3 F Pulse Rate 91 H Respiratory 28 H Rate Blood Pressure 140/71 140/71 140/71 O2 Sat by Pulse 100 100 97 Oximetry 10/30/17 10/30/17 10/30/17 05:30 05:40 05:50 Temperature Pulse Rate 91 H 93 H 90 Respiratory 21 25 H 30 H Rate Blood Pressure 129/64 129/64 129/64 O2 Sat by Pulse 98 97 99 Oximetry 10/30/17 10/30/17 10/30/17 06:00 06:10 06:20 Temperature Pulse Rate 90 87 87 Respiratory 30 H 28 H 27 H Rate Blood Pressure 129/69 129/69 129/69 O2 Sat by Pulse 91 98 99 Oximetry 10/30/17 10/30/17 10/30/17 07:10 08:00 12:00 Temperature 98.4 F 98.9 F Pulse Rate 82 86 Respiratory 22 Rate Blood Pressure 122/71 O2 Sat by Pulse 99 Oximetry CBC and BMP: 10/31/17 03:34 10/31/17 03:34 ABG, PT/INR, D-dimer: ABG POC ABG pH 7.456 (7.35-7.45) H 10/29/17 15:00 POC ABG pCO2 39.8 (35-45) 10/29/17 15:00 POC ABG pO2 82 (80-105) 10/29/17 15:00 POC ABG HCO3 28.1 10/29/17 15:00 POC ABG Total CO2 29 10/29/17 15:00 POC ABG O2 Sat 97 10/29/17 15:00 Abnormal lab findings: Abnormal Labs 10/27/17 10/27/17 10/27/17 18:05 20:30 20:30 WBC 22.7 H Hgb MCV 78 L MCH 24 L RDW 18.9 H Lymph % (Auto) Lymph # Seg Neutrophils % Seg Neuts % (Manual) 95.0 H Lymphocytes % (Manual) 4.0 L Monocytes % (Manual) Seg Neutrophils # Seg Neutrophils # Man 21.6 H Lymphocytes # (Manual) 0.9 L Monocytes # (Manual) POC ABG pH POC ABG pO2 VBG pH Sodium Potassium 2.8 L* Chloride Carbon Dioxide BUN Creatinine 1.6 H Glucose 122 H POC Glucose 153 H Lactic Acid Calcium Magnesium Total Bilirubin 1.40 H AST 98 H C-Reactive Protein NT-Pro-B Natriuret Pep Albumin 3.0 L TSH Urine WBC (Auto) U Epithel Cells (Auto) 10/27/17 10/27/17 10/27/17 21:57 22:55 22:55 WBC Hgb MCV MCH RDW Lymph % (Auto) Lymph # Seg Neutrophils % Seg Neuts % (Manual) Lymphocytes % (Manual) Monocytes % (Manual) Seg Neutrophils # Seg Neutrophils # Man Lymphocytes # (Manual) Monocytes # (Manual) POC ABG pH POC ABG pO2 VBG pH Sodium Potassium Chloride Carbon Dioxide BUN Creatinine Glucose POC Glucose Lactic Acid 6.30 H* Calcium Magnesium 1.40 L Total Bilirubin AST C-Reactive Protein NT-Pro-B Natriuret Pep 528.8 H Albumin TSH Urine WBC (Auto) U Epithel Cells (Auto) 10/27/17 10/27/17 10/28/17 22:55 Unknown 05:13 WBC 28.4 H Hgb MCV MCH 24 L RDW 19.0 H Lymph % (Auto) Lymph # Seg Neutrophils % Seg Neuts % (Manual) Lymphocytes % (Manual) 10.0 L Monocytes % (Manual) 10.0 H Seg Neutrophils # Seg Neutrophils # Man 18.3 H Lymphocytes # (Manual) Monocytes # (Manual) 2.8 H POC ABG pH POC ABG pO2 VBG pH 7.199 L* Sodium Potassium Chloride Carbon Dioxide BUN Creatinine Glucose POC Glucose Lactic Acid Calcium Magnesium Total Bilirubin AST C-Reactive Protein NT-Pro-B Natriuret Pep Albumin TSH Urine WBC (Auto) 23.0 H U Epithel Cells (Auto) 28.0 H 10/28/17 10/28/17 10/28/17 05:13 06:05 14:45 WBC Hgb MCV MCH RDW Lymph % (Auto) Lymph # Seg Neutrophils % Seg Neuts % (Manual) Lymphocytes % (Manual) Monocytes % (Manual) Seg Neutrophils # Seg Neutrophils # Man Lymphocytes # (Manual) Monocytes # (Manual) POC ABG pH 7.345 L POC ABG pO2 61 L VBG pH Sodium Potassium Chloride Carbon Dioxide 19 L BUN Creatinine 2.1 H Glucose 140 H POC Glucose Lactic Acid 3.00 H* Calcium Magnesium Total Bilirubin AST C-Reactive Protein NT-Pro-B Natriuret Pep Albumin TSH Urine WBC (Auto) U Epithel Cells (Auto) 10/29/17 10/29/17 10/29/17 04:18 04:18 06:33 WBC 15.9 H Hgb MCV 78 L MCH 25 L RDW 19.3 H Lymph % (Auto) 6.5 L Lymph # 1.0 L Seg Neutrophils % 89.0 H Seg Neuts % (Manual) Lymphocytes % (Manual) Monocytes % (Manual) Seg Neutrophils # 14.2 H Seg Neutrophils # Man Lymphocytes # (Manual) Monocytes # (Manual) POC ABG pH POC ABG pO2 VBG pH Sodium Potassium Chloride Carbon Dioxide BUN 18 H Creatinine 1.3 H Glucose 207 H POC Glucose 221 H Lactic Acid Calcium 8.3 L Magnesium Total Bilirubin AST C-Reactive Protein NT-Pro-B Natriuret Pep Albumin TSH Urine WBC (Auto) U Epithel Cells (Auto) 10/29/17 10/29/17 10/29/17 14:37 14:37 15:00 WBC Hgb MCV MCH RDW Lymph % (Auto) Lymph # Seg Neutrophils % Seg Neuts % (Manual) Lymphocytes % (Manual) Monocytes % (Manual) Seg Neutrophils # Seg Neutrophils # Man Lymphocytes # (Manual) Monocytes # (Manual) POC ABG pH 7.456 H POC ABG pO2 VBG pH Sodium Potassium Chloride Carbon Dioxide BUN Creatinine Glucose POC Glucose Lactic Acid Calcium Magnesium Total Bilirubin AST C-Reactive Protein 27.20 H NT-Pro-B Natriuret Pep Albumin TSH < 0.005 L Urine WBC (Auto) U Epithel Cells (Auto) 10/30/17 10/30/17 10/30/17 06:00 10:33 10:33 WBC Hgb 10.0 L MCV 77 L MCH 24 L RDW 18.9 H Lymph % (Auto) Lymph # Seg Neutrophils % Seg Neuts % (Manual) Lymphocytes % (Manual) Monocytes % (Manual) Seg Neutrophils # Seg Neutrophils # Man Lymphocytes # (Manual) Monocytes # (Manual) POC ABG pH POC ABG pO2 VBG pH Sodium 149 H Potassium 3.5 L Chloride 110.6 H Carbon Dioxide BUN 22 H Creatinine Glucose 235 H POC Glucose 215 H Lactic Acid Calcium Magnesium Total Bilirubin AST C-Reactive Protein NT-Pro-B Natriuret Pep Albumin TSH Urine WBC (Auto) U Epithel Cells (Auto)
--- NOTE | 2017-10-30 15:33 | Progress Note ---
Assessment and Plan Sepsis likely due to CAP and UTI - cont abx follow cx Shock - likely from sepsis with underlying h/o corticosteroid deficiency - s/p levophed and vasopressin, - cont solucortef 100mg q8h History of pituitary tumor - s/p resection 2years ago - cont synthroid, steroid and Ddavp h/o cortisol insufficiency/ hypothyroidism/iatrogenic DI - cont supplement iv route as pt on BiPAP and did not pass seallow study Acute respiratory failure - likely from PNA, off bipap now, cont ventimask - nebulizer, steroid - CC following NIKIA - likely vasomotor nephropathy from sepsis - cont iv fluid, consulted renal - renal function improving Morbid obesity - nutrition consulted transfer out off ICU today physical exam: Gen. appearance: Patient lying in bed in no acute distress, on bipap HEENT: Normocephalic/atraumatic, pupils equal round reactive to light, no scleral icterus, no JVD or thyromegaly or nodule, neck is supple, mucous membrane moist, no erythema or exudate Heart: S1-S2, tachycardic Lungs: Crackles bilateral breathing comfortable Abdomen: Positive bowel sounds, nontender, nondistended, no organomegaly Extremities: No edema, cyanosis, clubbing Neuro:: sedated now Skin: No rash, nodules, warm dry Subjective Date of service: 10/30/17 Interval history: patient seen and examined having large amount of urine output she is off biPAP, remained confused and agitated on ventimask with 40% fiO2 Objective - Constitutional Vitals: Vital Signs - 12hr 10/30/17 10/30/17 10/30/17 03:32 03:40 03:50 Temperature Pulse Rate 89 98 H 99 H Respiratory 19 24 21 Rate Blood Pressure 141/78 138/84 138/84 O2 Sat by Pulse 98 98 99 Oximetry 10/30/17 10/30/17 10/30/17 04:00 04:10 04:20 Temperature Pulse Rate 92 H 92 H 91 H Respiratory 28 H 27 H 29 H Rate Blood Pressure 140/71 140/71 140/71 O2 Sat by Pulse 93 99 99 Oximetry 10/30/17 10/30/17 10/30/17 04:30 04:40 04:50 Temperature Pulse Rate 92 H Respiratory 26 H Rate Blood Pressure 140/71 140/71 140/71 O2 Sat by Pulse 99 98 99 Oximetry 10/30/17 10/30/17 10/30/17 05:00 05:12 05:20 Temperature 99.3 F Pulse Rate 91 H Respiratory 28 H Rate Blood Pressure 140/71 140/71 140/71 O2 Sat by Pulse 100 100 97 Oximetry 10/30/17 10/30/17 10/30/17 05:30 05:40 05:50 Temperature Pulse Rate 91 H 93 H 90 Respiratory 21 25 H 30 H Rate Blood Pressure 129/64 129/64 129/64 O2 Sat by Pulse 98 97 99 Oximetry 10/30/17 10/30/17 10/30/17 06:00 06:10 06:20 Temperature Pulse Rate 90 87 87 Respiratory 30 H 28 H 27 H Rate Blood Pressure 129/69 129/69 129/69 O2 Sat by Pulse 91 98 99 Oximetry 10/30/17 10/30/17 10/30/17 07:10 08:00 12:00 Temperature 98.4 F 98.9 F Pulse Rate 82 86 Respiratory 22 Rate Blood Pressure 122/71 O2 Sat by Pulse 99 Oximetry - Labs CBC & Chem 7: 10/30/17 10:33 10/30/17 10:33 Labs: Abnormal lab results 10/29/17 10/30/17 10/30/17 Range/Units 14:37 06:00 10:33 Hgb 10.0 L (10.1-14.3) gm/dl MCV 77 L (79-97) fl MCH 24 L (28-32) pg RDW 18.9 H (13.2-15.2) % Sodium (137-145) mmol/L Potassium (3.6-5.0) mmol/L Chloride (98-107) mmol/L BUN (7-17) mg/dL Glucose (65-100) mg/dL POC Glucose 215 H (70-105) TSH < 0.005 L (0.270-4.200) mlU/mL 10/30/17 10/30/17 Range/Units 10:33 10:54 Hgb (10.1-14.3) gm/dl MCV (79-97) fl MCH (28-32) pg RDW (13.2-15.2) % Sodium 149 H (137-145) mmol/L Potassium 3.5 L (3.6-5.0) mmol/L Chloride 110.6 H (98-107) mmol/L BUN 22 H (7-17) mg/dL Glucose 235 H (65-100) mg/dL POC Glucose 266 H (70-105) TSH (0.270-4.200) mlU/mL
[2017-10-30] MEDS ORDERED: PANCREAZE DR 10,500 UNIT FEEDTUBE PRN (16:05)
[2017-10-30] MEDS ORDERED: SIMPLE SYRUP FEEDTUBE PRN ×2 (16:05)
[2017-10-30] MEDS ORDERED: SODIUM BICARBONATE FEEDTUBE PRN (16:05)
[2017-10-31 04:27] LABS: Hemoglobin 9.3 gm/dl (10.1-14.3); Mean Corpuscular HGB Conc 32 % (30-34); Mean Corpuscular Volume 77 fl (79-97); Platelet Count 189 K/mm3 (140-440); Red Blood Count 3.79 M/mm3 (3.65-5.03); Red Cell Distribution Width 19.1 % (13.2-15.2)
[2017-10-31 04:33] LABS: Mean Corpuscular Hemoglobin 25 pg (28-32)
[2017-10-31 04:41] LABS: BUN/Creatinine Ratio 29; Blood Urea Nitrogen 23 mg/dL (7-17); Calcium 8.2 mg/dL (8.4-10.2); Hemolysis Index 26
[2017-10-31 05:32] LABS: Anisocytosis 1+; Band Neutrophils # (Manual) 0.1 K/mm3; Basophils % (Manual) 0 % (0.0-1.8); Hypochromasia 1+; Total Cells Counted 100
[2017-10-31] MEDS: DDAVP PO SCH ×2 (11:01→22:15)
[2017-10-31] MEDS: LEVAQUIN 750MG/150ML 750 MG/150 ML BAG IV SCH (11:01)
[2017-10-31] MEDS: LOVENOX SUB-Q SCH (11:03)
--- NOTE | 2017-10-31 12:23 | Progress Note ---
Assessment and Plan Sepsis syndrome with hypotension. Mean arterial pressures were as low as 51 at admission. Bilateral pulmonary infiltrates, pneumonia versus atelectasis. Acute encephalopathy, possibly on chronic. Hypopituitarism. Morbid obesity. Metabolic acidosis with elevated lactic acid levels. Urinary tract infection. Acute kidney injury Subjective Date of service: 10/31/17 Interval history: Patient is seen today for: Seen and examined at bedside; 24hour events reviewed; nursing and respiratory care staff consulted; no adverse overnight events reported to me; Objective Vital Signs - 12hr 10/31/17 10/31/17 10/31/17 00:30 00:41 00:51 Temperature Pulse Rate 82 78 80 Respiratory 29 H 31 H 33 H Rate Blood Pressure 135/73 135/73 135/73 O2 Sat by Pulse 100 100 100 Oximetry 10/31/17 10/31/17 10/31/17 01:01 01:10 01:21 Temperature Pulse Rate 81 81 92 H Respiratory 31 H 32 H 14 Rate Blood Pressure 130/74 130/74 130/74 O2 Sat by Pulse 96 100 Oximetry 10/31/17 10/31/17 10/31/17 01:31 01:41 01:50 Temperature Pulse Rate 88 82 Respiratory 23 30 H Rate Blood Pressure 130/74 130/74 O2 Sat by Pulse 98 98 99 Oximetry 10/31/17 10/31/17 10/31/17 01:51 02:01 02:11 Temperature Pulse Rate 83 83 80 Respiratory 32 H 33 H 31 H Rate Blood Pressure 130/74 117/59 117/59 O2 Sat by Pulse 80 L 89 99 Oximetry 10/31/17 10/31/17 10/31/17 02:21 02:31 02:41 Temperature Pulse Rate 92 H 89 84 Respiratory 16 16 18 Rate Blood Pressure 117/59 117/59 117/59 O2 Sat by Pulse 100 99 100 Oximetry 10/31/17 10/31/17 10/31/17 02:51 03:01 03:07 Temperature Pulse Rate 83 80 Respiratory 31 H 22 Rate Blood Pressure 117/59 130/67 O2 Sat by Pulse 100 100 99 Oximetry 10/31/17 10/31/17 10/31/17 03:11 03:21 03:31 Temperature Pulse Rate 81 85 85 Respiratory 26 H 33 H 18 Rate Blood Pressure 130/67 130/67 130/67 O2 Sat by Pulse 100 97 100 Oximetry 10/31/17 10/31/17 10/31/17 03:41 03:47 03:51 Temperature 98.0 F Pulse Rate 84 85 Respiratory 33 H 20 Rate Blood Pressure 130/67 130/67 O2 Sat by Pulse 99 100 Oximetry 10/31/17 10/31/17 10/31/17 04:00 04:11 04:21 Temperature Pulse Rate 83 84 82 Respiratory 19 24 18 Rate Blood Pressure 118/61 118/61 118/61 O2 Sat by Pulse 100 100 100 Oximetry 10/31/17 10/31/17 10/31/17 04:31 04:41 04:51 Temperature Pulse Rate 84 85 82 Respiratory 23 18 29 H Rate Blood Pressure 118/61 118/61 118/61 O2 Sat by Pulse 100 100 99 Oximetry 10/31/17 10/31/17 10/31/17 04:54 05:00 05:11 Temperature Pulse Rate 84 82 Respiratory 31 H 31 H Rate Blood Pressure 114/62 114/62 O2 Sat by Pulse 99 97 99 Oximetry 10/31/17 10/31/17 10/31/17 05:21 05:31 05:41 Temperature Pulse Rate 85 83 81 Respiratory 20 21 32 H Rate Blood Pressure 114/62 114/62 114/62 O2 Sat by Pulse 100 100 100 Oximetry 10/31/17 10/31/17 10/31/17 05:51 06:00 06:11 Temperature Pulse Rate 80 85 79 Respiratory 29 H 36 H 21 Rate Blood Pressure 114/62 105/55 105/55 O2 Sat by Pulse 99 96 98 Oximetry 10/31/17 10/31/17 10/31/17 06:21 06:25 06:31 Temperature Pulse Rate 82 80 Respiratory 31 H 32 H Rate Blood Pressure 105/55 105/55 O2 Sat by Pulse 96 99 97 Oximetry 10/31/17 10/31/17 10/31/17 06:41 06:51 07:00 Temperature Pulse Rate 83 85 79 Respiratory 20 20 31 H Rate Blood Pressure 105/55 105/55 119/68 O2 Sat by Pulse 100 95 100 Oximetry 10/31/17 10/31/17 10/31/17 07:11 07:21 07:31 Temperature Pulse Rate 77 78 78 Respiratory 31 H 30 H 27 H Rate Blood Pressure 119/68 119/68 119/68 O2 Sat by Pulse 99 100 99 Oximetry 10/31/17 10/31/1710/31/18 07:41 07:51 08:00 Temperature 98.2 F Pulse Rate 78 76 75 Respiratory 26 H 30 H 28 H Rate Blood Pressure 119/68 119/68 118/63 O2 Sat by Pulse 100 99 98 Oximetry 10/31/17 10/31/17 10/31/17 08:11 08:21 08:31 Temperature Pulse Rate 81 81 81 Respiratory 19 13 24 Rate Blood Pressure 119/68 119/68 119/68 O2 Sat by Pulse 99 Oximetry 10/31/17 10/31/17 10/31/17 08:41 08:51 09:01 Temperature Pulse Rate 78 81 78 Respiratory 28 H 22 19 Rate Blood Pressure 119/68 119/68 113/51 O2 Sat by Pulse Oximetry 10/31/17 10/31/17 10/31/17 09:11 09:21 12:00 Temperature 99.3 F Pulse Rate 82 79 Respiratory 16 27 H Rate Blood Pressure 113/51 113/51 O2 Sat by Pulse Oximetry CBC and BMP: 10/31/17 03:34 10/31/17 03:34 ABG, PT/INR, D-dimer: ABG POC ABG pH 7.456 (7.35-7.45) H 10/29/17 15:00 POC ABG pCO2 39.8 (35-45) 10/29/17 15:00 POC ABG pO2 82 (80-105) 10/29/17 15:00 POC ABG HCO3 28.1 10/29/17 15:00 POC ABG Total CO2 29 10/29/17 15:00 POC ABG O2 Sat 97 10/29/17 15:00 Abnormal lab findings: Abnormal Labs 10/27/17 10/27/17 10/27/17 18:05 20:30 20:30 WBC 22.7 H Hgb Hct MCV 78 L MCH 24 L RDW 18.9 H Lymph % (Auto) Lymph # Seg Neutrophils % Seg Neuts % (Manual) 95.0 H Lymphocytes % (Manual) 4.0 L Monocytes % (Manual) Seg Neutrophils # Seg Neutrophils # Man 21.6 H Lymphocytes # (Manual) 0.9 L Monocytes # (Manual) POC ABG pH POC ABG pO2 VBG pH Sodium Potassium 2.8 L* Chloride Carbon Dioxide BUN Creatinine 1.6 H Glucose 122 H POC Glucose 153 H Lactic Acid Calcium Magnesium Total Bilirubin 1.40 H AST 98 H C-Reactive Protein NT-Pro-B Natriuret Pep Albumin 3.0 L TSH Urine WBC (Auto) U Epithel Cells (Auto) 10/27/17 10/27/17 10/27/17 21:57 22:55 22:55 WBC Hgb Hct MCV MCH RDW Lymph % (Auto) Lymph # Seg Neutrophils % Seg Neuts % (Manual) Lymphocytes % (Manual) Monocytes % (Manual) Seg Neutrophils # Seg Neutrophils # Man Lymphocytes # (Manual) Monocytes # (Manual) POC ABG pH POC ABG pO2 VBG pH Sodium Potassium Chloride Carbon Dioxide BUN Creatinine Glucose POC Glucose Lactic Acid 6.30 H* Calcium Magnesium 1.40 L Total Bilirubin AST C-Reactive Protein NT-Pro-B Natriuret Pep 528.8 H Albumin TSH Urine WBC (Auto) U Epithel Cells (Auto) 10/27/17 10/27/17 10/28/17 22:55 Unknown 05:13 WBC 28.4 H Hgb Hct MCV MCH 24 L RDW 19.0 H Lymph % (Auto) Lymph # Seg Neutrophils % Seg Neuts % (Manual) Lymphocytes % (Manual) 10.0 L Monocytes % (Manual) 10.0 H Seg Neutrophils # Seg Neutrophils # Man 18.3 H Lymphocytes # (Manual) Monocytes # (Manual) 2.8 H POC ABG pH POC ABG pO2 VBG pH 7.199 L* Sodium Potassium Chloride Carbon Dioxide BUN Creatinine Glucose POC Glucose Lactic Acid Calcium Magnesium Total Bilirubin AST C-Reactive Protein NT-Pro-B Natriuret Pep Albumin TSH Urine WBC (Auto) 23.0 H U Epithel Cells (Auto) 28.0 H 10/28/17 10/28/17 10/28/17 05:13 06:05 14:45 WBC Hgb Hct MCV MCH RDW Lymph % (Auto) Lymph # Seg Neutrophils % Seg Neuts % (Manual) Lymphocytes % (Manual) Monocytes % (Manual) Seg Neutrophils # Seg Neutrophils # Man Lymphocytes # (Manual) Monocytes # (Manual) POC ABG pH 7.345 L POC ABG pO2 61 L VBG pH Sodium Potassium Chloride Carbon Dioxide 19 L BUN Creatinine 2.1 H Glucose 140 H POC Glucose Lactic Acid 3.00 H* Calcium Magnesium Total Bilirubin AST C-Reactive Protein NT-Pro-B Natriuret Pep Albumin TSH Urine WBC (Auto) U Epithel Cells (Auto) 10/29/17 10/29/17 10/29/17 04:18 04:18 06:33 WBC 15.9 H Hgb Hct MCV 78 L MCH 25 L RDW 19.3 H Lymph % (Auto) 6.5 L Lymph # 1.0 L Seg Neutrophils % 89.0 H Seg Neuts % (Manual) Lymphocytes % (Manual) Monocytes % (Manual) Seg Neutrophils # 14.2 H Seg Neutrophils # Man Lymphocytes # (Manual) Monocytes # (Manual) POC ABG pH POC ABG pO2 VBG pH Sodium Potassium Chloride Carbon Dioxide BUN 18 H Creatinine 1.3 H Glucose 207 H POC Glucose 221 H Lactic Acid Calcium 8.3 L Magnesium Total Bilirubin AST C-Reactive Protein NT-Pro-B Natriuret Pep Albumin TSH Urine WBC (Auto) U Epithel Cells (Auto) 10/29/17 10/29/17 10/29/17 14:37 14:37 15:00 WBC Hgb Hct MCV MCH RDW Lymph % (Auto) Lymph # Seg Neutrophils % Seg Neuts % (Manual) Lymphocytes % (Manual) Monocytes % (Manual) Seg Neutrophils # Seg Neutrophils # Man Lymphocytes # (Manual) Monocytes # (Manual) POC ABG pH 7.456 H POC ABG pO2 VBG pH Sodium Potassium Chloride Carbon Dioxide BUN Creatinine Glucose POC Glucose Lactic Acid Calcium Magnesium Total Bilirubin AST C-Reactive Protein 27.20 H NT-Pro-B Natriuret Pep Albumin TSH < 0.005 L Urine WBC (Auto) U Epithel Cells (Auto) 10/30/17 10/30/17 10/30/17 06:00 08:31 10:33 WBC Hgb 10.0 L Hct MCV 77 L MCH 24 L RDW 18.9 H Lymph % (Auto) Lymph # Seg Neutrophils % Seg Neuts % (Manual) Lymphocytes % (Manual) Monocytes % (Manual) Seg Neutrophils # Seg Neutrophils # Man Lymphocytes # (Manual) Monocytes # (Manual) POC ABG pH POC ABG pO2 VBG pH Sodium Potassium Chloride Carbon Dioxide BUN Creatinine Glucose POC Glucose 215 H 247 H Lactic Acid Calcium Magnesium Total Bilirubin AST C-Reactive Protein NT-Pro-B Natriuret Pep Albumin TSH Urine WBC (Auto) U Epithel Cells (Auto) 10/30/17 10/30/17 10/30/17 10:33 10:54 15:56 WBC Hgb Hct MCV MCH RDW Lymph % (Auto) Lymph # Seg Neutrophils % Seg Neuts % (Manual) Lymphocytes % (Manual) Monocytes % (Manual) Seg Neutrophils # Seg Neutrophils # Man Lymphocytes # (Manual) Monocytes # (Manual) POC ABG pH POC ABG pO2 VBG pH Sodium 149 H Potassium 3.5 L Chloride 110.6 H Carbon Dioxide BUN 22 H Creatinine Glucose 235 H POC Glucose 266 H 162 H Lactic Acid Calcium Magnesium Total Bilirubin AST C-Reactive Protein NT-Pro-B Natriuret Pep Albumin TSH Urine WBC (Auto) U Epithel Cells (Auto) 10/30/17 10/31/17 10/31/17 22:20 03:34 03:34 WBC Hgb 9.3 L Hct 29.0 L MCV 77 L MCH 25 L RDW 19.1 H Lymph % (Auto) Lymph # Seg Neutrophils % Seg Neuts % (Manual) 71.0 H Lymphocytes % (Manual) Monocytes % (Manual) 9.0 H Seg Neutrophils # Seg Neutrophils # Man Lymphocytes # (Manual) 1.0 L Monocytes # (Manual) POC ABG pH POC ABG pO2 VBG pH Sodium 148 H Potassium 3.4 L Chloride 109.5 H Carbon Dioxide BUN 23 H Creatinine Glucose 234 H POC Glucose 283 H Lactic Acid Calcium 8.2 L Magnesium Total Bilirubin AST C-Reactive Protein NT-Pro-B Natriuret Pep Albumin TSH Urine WBC (Auto) U Epithel Cells (Auto) 10/31/17 10/31/17 08:06 11:53 WBC Hgb Hct MCV MCH RDW Lymph % (Auto) Lymph # Seg Neutrophils % Seg Neuts % (Manual) Lymphocytes % (Manual) Monocytes % (Manual) Seg Neutrophils # Seg Neutrophils # Man Lymphocytes # (Manual) Monocytes # (Manual) POC ABG pH POC ABG pO2 VBG pH Sodium Potassium Chloride Carbon Dioxide BUN Creatinine Glucose POC Glucose 172 H 257 H Lactic Acid Calcium Magnesium Total Bilirubin AST C-Reactive Protein NT-Pro-B Natriuret Pep Albumin TSH Urine WBC (Auto) U Epithel Cells (Auto)
[2017-10-31] MEDS: D5/0.45NS 1,000 ML IV SCH (14:32)
--- NOTE | 2017-10-31 17:13 | Progress Note ---
Assessment and Plan Sepsis likely due to CAP and UTI - Cx is negative - will cover total 7 days of abx to cover PNA Shock - likely from sepsis with underlying h/o corticosteroid deficiency - s/p levophed and vasopressin, - cont solucortef 100mg q8h History of pituitary tumor - s/p resection 2 years ago - cont synthroid, steroid and Ddavp h/o cortisol insufficiency/ hypothyroidism/iatrogenic DI - cont supplement iv route as pt on BiPAP and did not pass seallow study Acute respiratory failure - likely from PNA, off bipap, off ventimask - nebulizer, steroid, N/C o2 as needed - CC following NIKIA - likely vasomotor nephropathy from sepsis - cont iv fluid, consulted renal - renal function improved Hypernatremia - cont hypotonic solution - monitor BMP Hypokalemia - replete and monitor Morbid obesity - nutrition consulted transfer out off ICU today Brief History: 47-year-old male with a history of pituitary tumor s/p resection, cortisol deficiency on supplement was brought to the emergency room with complaints of altered mental status that started for last two days. Physical exam: Gen. appearance: Patient lying in bed in no acute distress, on N/c HEENT: Normocephalic/atraumatic, pupils equal round reactive to light, no scleral icterus, no JVD or thyromegaly or nodule, neck is supple, mucous membrane moist, no erythema or exudate Heart: S1-S2, tachycardic Lungs: Crackles bilateral breathing comfortable Abdomen: Positive bowel sounds, nontender, nondistended, no organomegaly Extremities: No edema, cyanosis, clubbing Neuro:: AAO X3. no focal deficit Skin: No rash, nodules, warm dry Subjective Date of service: 10/31/17 Interval history: patient seen and examined normal urine output, was not transferred from ICU last night She is on N/C, much alert and oriented today Objective - Constitutional Vitals: Vital Signs - 12hr 10/31/17 10/31/17 10/31/17 05:21 05:31 05:41 Temperature Pulse Rate 85 83 81 Respiratory 20 21 32 H Rate Blood Pressure 114/62 114/62 114/62 O2 Sat by Pulse 100 100 100 Oximetry 10/31/17 10/31/17 10/31/17 05:51 06:00 06:11 Temperature Pulse Rate 80 85 79 Respiratory 29 H 36 H 21 Rate Blood Pressure 114/62 105/55 105/55 O2 Sat by Pulse 99 96 98 Oximetry 10/31/17 10/31/17 10/31/17 06:21 06:25 06:31 Temperature Pulse Rate 82 80 Respiratory 31 H 32 H Rate Blood Pressure 105/55 105/55 O2 Sat by Pulse 96 99 97 Oximetry 10/31/17 10/31/17 10/31/17 06:41 06:51 07:00 Temperature Pulse Rate 83 85 79 Respiratory 20 20 31 H Rate Blood Pressure 105/55 105/55 119/68 O2 Sat by Pulse 100 95 100 Oximetry 10/31/17 10/31/17 10/31/17 07:11 07:21 07:31 Temperature Pulse Rate 77 78 78 Respiratory 31 H 30 H 27 H Rate Blood Pressure 119/68 119/68 119/68 O2 Sat by Pulse 99 100 99 Oximetry 10/31/17 10/31/17 10/31/17 07:41 07:51 08:00 Temperature 98.2 F Pulse Rate 78 76 75 Respiratory 26 H 30 H 28 H Rate Blood Pressure 119/68 119/68 118/63 O2 Sat by Pulse 100 99 98 Oximetry 10/31/17 10/31/17 10/31/17 08:11 08:21 08:31 Temperature Pulse Rate 81 81 81 Respiratory 19 13 24 Rate Blood Pressure 119/68 119/68 119/68 O2 Sat by Pulse 99 Oximetry 10/31/17 10/31/17 10/31/17 08:41 08:51 09:01 Temperature Pulse Rate 78 81 78 Respiratory 28 H 22 19 Rate Blood Pressure 119/68 119/68 113/51 O2 Sat by Pulse Oximetry 10/31/17 10/31/17 10/31/17 09:11 09:21 12:00 Temperature 99.3 F Pulse Rate 82 79 Respiratory 16 27 H Rate Blood Pressure 113/51 113/51 O2 Sat by Pulse Oximetry 10/31/17 16:00 Temperature 99.1 F Pulse Rate Respiratory Rate Blood Pressure O2 Sat by Pulse Oximetry - Labs CBC & Chem 7: 10/31/17 03:34 10/31/17 03:34 Labs: Abnormal lab results 10/30/17 10/30/17 10/30/17 Range/Units 08:31 15:56 22:20 Hgb (10.1-14.3) gm/dl Hct (30.3-42.9) % MCV (79-97) fl MCH (28-32) pg RDW (13.2-15.2) % Seg Neuts % (Manual) (40.0-70.0) % Monocytes % (Manual) (0.0-7.3) % Lymphocytes # (Manual) (1.2-5.4) K/mm3 Sodium (137-145) mmol/L Potassium (3.6-5.0) mmol/L Chloride (98-107) mmol/L BUN (7-17) mg/dL Glucose (65-100) mg/dL POC Glucose 247 H 162 H 283 H (70-105) Calcium (8.4-10.2) mg/dL 10/31/17 10/31/17 10/31/17 Range/Units 03:34 03:34 08:06 Hgb 9.3 L (10.1-14.3) gm/dl Hct 29.0 L (30.3-42.9) % MCV 77 L (79-97) fl MCH 25 L (28-32) pg RDW 19.1 H (13.2-15.2) % Seg Neuts % (Manual) 71.0 H (40.0-70.0) % Monocytes % (Manual) 9.0 H (0.0-7.3) % Lymphocytes # (Manual) 1.0 L (1.2-5.4) K/mm3 Sodium 148 H (137-145) mmol/L Potassium 3.4 L (3.6-5.0) mmol/L Chloride 109.5 H (98-107) mmol/L BUN 23 H (7-17) mg/dL Glucose 234 H (65-100) mg/dL POC Glucose 172 H (70-105) Calcium 8.2 L (8.4-10.2) mg/dL 10/31/17 10/31/17 Range/Units 11:53 16:02 Hgb (10.1-14.3) gm/dl Hct (30.3-42.9) % MCV (79-97) fl MCH (28-32) pg RDW (13.2-15.2) % Seg Neuts % (Manual) (40.0-70.0) % Monocytes % (Manual) (0.0-7.3) % Lymphocytes # (Manual) (1.2-5.4) K/mm3 Sodium (137-145) mmol/L Potassium (3.6-5.0) mmol/L Chloride (98-107) mmol/L BUN (7-17) mg/dL Glucose (65-100) mg/dL POC Glucose 257 H 179 H (70-105) Calcium (8.4-10.2) mg/dL
[2017-11-01] MEDS: D5/0.45NS 1,000 ML IV SCH ×2 (01:27→13:08)
[2017-11-01] MEDS ORDERED: K-DUR PO NR (08:31)
[2017-11-01 11:04] LABS: BUN/Creatinine Ratio 27; Blood Urea Nitrogen 19 mg/dL (7-17); Calcium 8.2 mg/dL (8.4-10.2); Hemolysis Index 11
[2017-11-01] MEDS: LOVENOX SUB-Q SCH (11:45)
[2017-11-01] MEDS: LEVAQUIN 750MG/150ML 750 MG/150 ML BAG IV SCH (11:48)
--- NOTE | 2017-11-01 15:42 | Progress Note ---
Assessment and Plan Sepsis likely due to CAP and UTI - Cx is negative - will cover total 7 days of abx to cover PNA Shock - likely from sepsis with underlying h/o corticosteroid deficiency - s/p levophed and vasopressin, - cont solucortef 100mg q8h, will taper the dose History of pituitary tumor - s/p resection 2 years ago - cont synthroid, steroid and Ddavp h/o cortisol insufficiency/ hypothyroidism/iatrogenic DI - cont supplement iv route and taper to po dose Acute respiratory failure - likely from PNA, supplemental O2 to keep o2 sat >92 - nebulizer, steroid, pulmonary following NIKIA - likely vasomotor nephropathy from sepsis - cont iv fluid, consulted renal - renal function improved Hypernatremia - likely from dehydration and chronic corticosteroid deficiency - improved with hypotonic solution - monitor BMP Chronic Hypokalemia - chronic corticosteroid deficiency - replete and monitor Morbid obesity - nutrition consulted Brief History: 47-year-old male with a history of pituitary tumor s/p resection, cortisol deficiency on supplement was brought to the emergency room with complaints of altered mental status that started for last two days. Physical exam: Gen. appearance: Patient lying in bed in no acute distress, on ventimask HEENT: Normocephalic/atraumatic, pupils equal round reactive to light, no scleral icterus, no JVD or thyromegaly or nodule, neck is supple, mucous membrane moist, no erythema or exudate Heart: S1-S2, tachycardic Lungs: NO Crackles bilateral, breathing comfortable Abdomen: Positive bowel sounds, nontender, nondistended, no organomegaly Extremities: No edema, cyanosis, clubbing Neuro:: AAO X3. no focal deficit Skin: No rash, nodules, warm dry Subjective Date of service: 11/01/17 Interval history: patient seen and examined doing better, tolerating diet back to ventimask again today Objective - Constitutional Vitals: Vital Signs - 12hr 11/01/17 11/01/17 11/01/17 05:21 08:11 10:00 Temperature 97.4 F L 97.9 F Pulse Rate 71 66 66 Respiratory 20 22 Rate Blood Pressure 117/62 117/66 O2 Sat by Pulse 100 100 96 Oximetry 11/01/17 14:25 Temperature Pulse Rate Respiratory Rate Blood Pressure O2 Sat by Pulse 100 Oximetry - Labs CBC & Chem 7: 11/02/17 06:06 11/02/17 06:06 Labs: Abnormal lab results 10/31/17 11/01/17 Range/Units 16:02 10:26 Potassium 3.0 L (3.6-5.0) mmol/L BUN 19 H (7-17) mg/dL Glucose 202 H (65-100) mg/dL POC Glucose 179 H (70-105) Calcium 8.2 L (8.4-10.2) mg/dL
[2017-11-01] MEDS: DDAVP PO SCH ×2 (16:59→22:23)
--- NOTE | 2017-11-01 22:29 | Progress Note ---
Assessment and Plan Patient alert, awake. Morbidly Obese. Resting on venturi mask , FIO2 40% and O2 saturation 100%, Patient says breathing better. - Patient Problems (1) Acute respiratory failure Current Visit: Yes Status: Acute Plan to address problem: Continue O2 supplementation , Venturi mask 40% Albuterol/atrovent aerosol treatments q 6 hours Continue S/C Lovenox Continue I/V Levaquine. (2) Bilateral pneumonia Current Visit: Yes Status: Acute Qualifiers: Qualified Code(s): J13 - Pneumonia due to Streptococcus pneumoniae Plan to address problem: Patient is on I/V Levaquin. (3) Acute renal failure Current Visit: Yes Status: Acute Plan to address problem: Improving. (4) Dehydration Current Visit: Yes Status: Acute Plan to address problem: Improved. (5) Encephalopathy Current Visit: Yes Status: Acute Plan to address problem: Appears Improved. (6) Pleural effusion Current Visit: Yes Status: Acute Plan to address problem: Reported small pleural effusions (7) Sepsis Current Visit: Yes Status: Acute Plan to address problem: Patient is on I/V Levaquine. Subjective Date of service: 11/01/17 Interval history: Patient alert, awake. Morbidly Obese. Resting on venturi mask , FIO2 40% and O2 saturation 100%, Patient says breathing better. Objective Vital Signs - 12hr 11/01/17 14:25 O2 Sat by Pulse 100 Oximetry Constitutional: no acute distress, alert Eyes: non-icteric ENT: oropharynx moist Neck: supple, no lymphadenopathy Ascultation: Bilateral: diminished breath sounds Cardiovascular: regular rate and rhythm Gastrointestinal: normoactive bowel sounds, soft, non-tender Integumentary: normal Extremities: no cyanosis, no edema Neurologic: normal mental status, non-focal exam, pupils equal and round, CN II- XII normal Psychiatric: mood appropriate CBC and BMP: 10/31/17 03:34 11/01/17 10:26 ABG, PT/INR, D-dimer: ABG POC ABG pH 7.456 (7.35-7.45) H 10/29/17 15:00 POC ABG pCO2 39.8 (35-45) 10/29/17 15:00 POC ABG pO2 82 (80-105) 10/29/17 15:00 POC ABG HCO3 28.1 10/29/17 15:00 POC ABG Total CO2 29 10/29/17 15:00 POC ABG O2 Sat 97 10/29/17 15:00 Abnormal lab findings: Abnormal Labs 10/27/17 10/27/17 10/27/17 18:05 20:30 20:30 WBC 22.7 H Hgb Hct MCV 78 L MCH 24 L RDW 18.9 H Lymph % (Auto) Lymph # Seg Neutrophils % Seg Neuts % (Manual) 95.0 H Lymphocytes % (Manual) 4.0 L Monocytes % (Manual) Seg Neutrophils # Seg Neutrophils # Man 21.6 H Lymphocytes # (Manual) 0.9 L Monocytes # (Manual) POC ABG pH POC ABG pO2 VBG pH Sodium Potassium 2.8 L* Chloride Carbon Dioxide BUN Creatinine 1.6 H Glucose 122 H POC Glucose 153 H Lactic Acid Calcium Magnesium Total Bilirubin 1.40 H AST 98 H C-Reactive Protein NT-Pro-B Natriuret Pep Albumin 3.0 L TSH Urine WBC (Auto) U Epithel Cells (Auto) 10/27/17 10/27/17 10/27/17 21:57 22:55 22:55 WBC Hgb Hct MCV MCH RDW Lymph % (Auto) Lymph # Seg Neutrophils % Seg Neuts % (Manual) Lymphocytes % (Manual) Monocytes % (Manual) Seg Neutrophils # Seg Neutrophils # Man Lymphocytes # (Manual) Monocytes # (Manual) POC ABG pH POC ABG pO2 VBG pH Sodium Potassium Chloride Carbon Dioxide BUN Creatinine Glucose POC Glucose Lactic Acid 6.30 H* Calcium Magnesium 1.40 L Total Bilirubin AST C-Reactive Protein NT-Pro-B Natriuret Pep 528.8 H Albumin TSH Urine WBC (Auto) U Epithel Cells (Auto) 10/27/17 10/27/17 10/28/17 22:55 Unknown 05:13 WBC 28.4 H Hgb Hct MCV MCH 24 L RDW 19.0 H Lymph % (Auto) Lymph # Seg Neutrophils % Seg Neuts % (Manual) Lymphocytes % (Manual) 10.0 L Monocytes % (Manual) 10.0 H Seg Neutrophils # Seg Neutrophils # Man 18.3 H Lymphocytes # (Manual) Monocytes # (Manual) 2.8 H POC ABG pH POC ABG pO2 VBG pH 7.199 L* Sodium Potassium Chloride Carbon Dioxide BUN Creatinine Glucose POC Glucose Lactic Acid Calcium Magnesium Total Bilirubin AST C-Reactive Protein NT-Pro-B Natriuret Pep Albumin TSH Urine WBC (Auto) 23.0 H U Epithel Cells (Auto) 28.0 H 10/28/17 10/28/17 10/28/17 05:13 06:05 14:45 WBC Hgb Hct MCV MCH RDW Lymph % (Auto) Lymph # Seg Neutrophils % Seg Neuts % (Manual) Lymphocytes % (Manual) Monocytes % (Manual) Seg Neutrophils # Seg Neutrophils # Man Lymphocytes # (Manual) Monocytes # (Manual) POC ABG pH 7.345 L POC ABG pO2 61 L VBG pH Sodium Potassium Chloride Carbon Dioxide 19 L BUN Creatinine 2.1 H Glucose 140 H POC Glucose Lactic Acid 3.00 H* Calcium Magnesium Total Bilirubin AST C-Reactive Protein NT-Pro-B Natriuret Pep Albumin TSH Urine WBC (Auto) U Epithel Cells (Auto) 10/29/17 10/29/17 10/29/17 04:18 04:18 06:33 WBC 15.9 H Hgb Hct MCV 78 L MCH 25 L RDW 19.3 H Lymph % (Auto) 6.5 L Lymph # 1.0 L Seg Neutrophils % 89.0 H Seg Neuts % (Manual) Lymphocytes % (Manual) Monocytes % (Manual) Seg Neutrophils # 14.2 H Seg Neutrophils # Man Lymphocytes # (Manual) Monocytes # (Manual) POC ABG pH POC ABG pO2 VBG pH Sodium Potassium Chloride Carbon Dioxide BUN 18 H Creatinine 1.3 H Glucose 207 H POC Glucose 221 H Lactic Acid Calcium 8.3 L Magnesium Total Bilirubin AST C-Reactive Protein NT-Pro-B Natriuret Pep Albumin TSH Urine WBC (Auto) U Epithel Cells (Auto) 10/29/17 10/29/17 10/29/17 14:37 14:37 15:00 WBC Hgb Hct MCV MCH RDW Lymph % (Auto) Lymph # Seg Neutrophils % Seg Neuts % (Manual) Lymphocytes % (Manual) Monocytes % (Manual) Seg Neutrophils # Seg Neutrophils # Man Lymphocytes # (Manual) Monocytes # (Manual) POC ABG pH 7.456 H POC ABG pO2 VBG pH Sodium Potassium Chloride Carbon Dioxide BUN Creatinine Glucose POC Glucose Lactic Acid Calcium Magnesium Total Bilirubin AST C-Reactive Protein 27.20 H NT-Pro-B Natriuret Pep Albumin TSH < 0.005 L Urine WBC (Auto) U Epithel Cells (Auto) 10/30/17 10/30/17 10/30/17 06:00 08:31 10:33 WBC Hgb 10.0 L Hct MCV 77 L MCH 24 L RDW 18.9 H Lymph % (Auto) Lymph # Seg Neutrophils % Seg Neuts % (Manual) Lymphocytes % (Manual) Monocytes % (Manual) Seg Neutrophils # Seg Neutrophils # Man Lymphocytes # (Manual) Monocytes # (Manual) POC ABG pH POC ABG pO2 VBG pH Sodium Potassium Chloride Carbon Dioxide BUN Creatinine Glucose POC Glucose 215 H 247 H Lactic Acid Calcium Magnesium Total Bilirubin AST C-Reactive Protein NT-Pro-B Natriuret Pep Albumin TSH Urine WBC (Auto) U Epithel Cells (Auto) 10/30/17 10/30/17 10/30/17 10:33 10:54 15:56 WBC Hgb Hct MCV MCH RDW Lymph % (Auto) Lymph # Seg Neutrophils % Seg Neuts % (Manual) Lymphocytes % (Manual) Monocytes % (Manual) Seg Neutrophils # Seg Neutrophils # Man Lymphocytes # (Manual) Monocytes # (Manual) POC ABG pH POC ABG pO2 VBG pH Sodium 149 H Potassium 3.5 L Chloride 110.6 H Carbon Dioxide BUN 22 H Creatinine Glucose 235 H POC Glucose 266 H 162 H Lactic Acid Calcium Magnesium Total Bilirubin AST C-Reactive Protein NT-Pro-B Natriuret Pep Albumin TSH Urine WBC (Auto) U Epithel Cells (Auto) 10/30/17 10/31/17 10/31/17 22:20 03:34 03:34 WBC Hgb 9.3 L Hct 29.0 L MCV 77 L MCH 25 L RDW 19.1 H Lymph % (Auto) Lymph # Seg Neutrophils % Seg Neuts % (Manual) 71.0 H Lymphocytes % (Manual) Monocytes % (Manual) 9.0 H Seg Neutrophils # Seg Neutrophils # Man Lymphocytes # (Manual) 1.0 L Monocytes # (Manual) POC ABG pH POC ABG pO2 VBG pH Sodium 148 H Potassium 3.4 L Chloride 109.5 H Carbon Dioxide BUN 23 H Creatinine Glucose 234 H POC Glucose 283 H Lactic Acid Calcium 8.2 L Magnesium Total Bilirubin AST C-Reactive Protein NT-Pro-B Natriuret Pep Albumin TSH Urine WBC (Auto) U Epithel Cells (Auto) 10/31/17 10/31/17 10/31/17 08:06 11:53 16:02 WBC Hgb Hct MCV MCH RDW Lymph % (Auto) Lymph # Seg Neutrophils % Seg Neuts % (Manual) Lymphocytes % (Manual) Monocytes % (Manual) Seg Neutrophils # Seg Neutrophils # Man Lymphocytes # (Manual) Monocytes # (Manual) POC ABG pH POC ABG pO2 VBG pH Sodium Potassium Chloride Carbon Dioxide BUN Creatinine Glucose POC Glucose 172 H 257 H 179 H Lactic Acid Calcium Magnesium Total Bilirubin AST C-Reactive Protein NT-Pro-B Natriuret Pep Albumin TSH Urine WBC (Auto) U Epithel Cells (Auto) 11/01/17 10:26 WBC Hgb Hct MCV MCH RDW Lymph % (Auto) Lymph # Seg Neutrophils % Seg Neuts % (Manual) Lymphocytes % (Manual) Monocytes % (Manual) Seg Neutrophils # Seg Neutrophils # Man Lymphocytes # (Manual) Monocytes # (Manual) POC ABG pH POC ABG pO2 VBG pH Sodium Potassium 3.0 L Chloride Carbon Dioxide BUN 19 H Creatinine Glucose 202 H POC Glucose Lactic Acid Calcium 8.2 L Magnesium Total Bilirubin AST C-Reactive Protein NT-Pro-B Natriuret Pep Albumin TSH Urine WBC (Auto) U Epithel Cells (Auto) Chest x-ray: report reviewed (Bibasilar air space opacities, small bilateral pleural effusions.), image reviewed
[2017-11-02] MEDS: ZOFRAN IV PRN (02:41)
[2017-11-02 06:36] LABS: Hematocrit 34.5 % (30.3-42.9); Hemoglobin 10.8 gm/dl (10.1-14.3); Mean Corpuscular HGB Conc 31 % (30-34); Mean Corpuscular Volume 77 fl (79-97); Platelet Count 286 K/mm3 (140-440); Red Blood Count 4.46 M/mm3 (3.65-5.03); Red Cell Distribution Width 18.1 % (13.2-15.2)
[2017-11-02 06:44] LABS: Mean Corpuscular Hemoglobin 24 pg (28-32)
[2017-11-02 06:57] LABS: BUN/Creatinine Ratio 22; Blood Urea Nitrogen 13 mg/dL (7-17); Calcium 8.3 mg/dL (8.4-10.2); Hemolysis Index 10
[2017-11-02 07:28] LABS: Band Neutrophils # (Manual) 0.3 K/mm3; Basophils % (Manual) 0 % (0.0-1.8); Eosinophils % (Manual) 0 % (0.0-4.3); Myelocytes # (Manual) 0.3 K/mm3; Total Cells Counted 100
[2017-11-02 07:29] LABS: Anisocytosis 1+; Hypochromasia 1+; Ovalocytes 1+; Tear Drop Cells Few
[2017-11-02] MEDS ORDERED: K-DUR PO SCH (10:00)
[2017-11-02] MEDS: LEVAQUIN PO SCH (10:47)
[2017-11-02] MEDS: DDAVP PO SCH ×2 (10:48→21:19)
[2017-11-02] MEDS: K-DUR PO SCH ×2 (10:48→21:19)
[2017-11-02] MEDS: LOVENOX SUB-Q SCH (10:49)
[2017-11-02] MEDS: CORTEF PO SCH ×2 (10:49→21:19)
[2017-11-02] MEDS ORDERED: SYNTHROID IV ONE (13:00)
--- NOTE | 2017-11-02 14:20 | Progress Note ---
Subjective Date of service: 11/02/17 Principal diagnosis: Sepsis Syndrome; Acute Encephalopathy; Acute Hypoxemic Resp Failure Interval history: Patient is seen today for: Seen and examined at bedside; 24hour events reviewed; nursing and respiratory care staff consulted; no adverse overnight events reported to me; Objective Vital Signs - 12hr 11/02/17 11/02/17 11/02/17 05:34 08:19 10:00 Temperature 98.6 F Pulse Rate 78 55 L 60 Respiratory 20 22 Rate Blood Pressure 122/66 Blood Pressure 108/70 [Left] O2 Sat by Pulse 100 100 98 Oximetry 11/02/17 11/02/17 11:47 11:48 Temperature 98.6 F Pulse Rate 60 62 Respiratory 18 Rate Blood Pressure 130/79 Blood Pressure [Left] O2 Sat by Pulse 100 100 Oximetry Constitutional: no acute distress, alert Eyes: non-icteric ENT: oropharynx moist Neck: supple, no lymphadenopathy Ascultation: Bilateral: diminished breath sounds Cardiovascular: regular rate and rhythm Gastrointestinal: normoactive bowel sounds, soft, non-tender Integumentary: normal Extremities: no cyanosis, no edema Neurologic: normal mental status, non-focal exam, pupils equal and round, CN II- XII normal Psychiatric: mood appropriate CBC and BMP: 11/02/17 06:06 11/02/17 06:06 ABG, PT/INR, D-dimer: ABG POC ABG pH 7.456 (7.35-7.45) H 10/29/17 15:00 POC ABG pCO2 39.8 (35-45) 10/29/17 15:00 POC ABG pO2 82 (80-105) 10/29/17 15:00 POC ABG HCO3 28.1 10/29/17 15:00 POC ABG Total CO2 29 10/29/17 15:00 POC ABG O2 Sat 97 10/29/17 15:00 Abnormal lab findings: Abnormal Labs 10/27/17 10/27/17 10/27/17 18:05 20:30 20:30 WBC 22.7 H Hgb Hct MCV 78 L MCH 24 L RDW 18.9 H Lymph % (Auto) Lymph # Seg Neutrophils % Seg Neuts % (Manual) 95.0 H Lymphocytes % (Manual) 4.0 L Monocytes % (Manual) Nucleated RBC % Seg Neutrophils # Seg Neutrophils # Man 21.6 H Lymphocytes # (Manual) 0.9 L Monocytes # (Manual) POC ABG pH POC ABG pO2 VBG pH Sodium Potassium 2.8 L* Chloride Carbon Dioxide BUN Creatinine 1.6 H Glucose 122 H POC Glucose 153 H Lactic Acid Calcium Magnesium Total Bilirubin 1.40 H AST 98 H C-Reactive Protein NT-Pro-B Natriuret Pep Albumin 3.0 L TSH Urine WBC (Auto) U Epithel Cells (Auto) 10/27/17 10/27/17 10/27/17 21:57 22:55 22:55 WBC Hgb Hct MCV MCH RDW Lymph % (Auto) Lymph # Seg Neutrophils % Seg Neuts % (Manual) Lymphocytes % (Manual) Monocytes % (Manual) Nucleated RBC % Seg Neutrophils # Seg Neutrophils # Man Lymphocytes # (Manual) Monocytes # (Manual) POC ABG pH POC ABG pO2 VBG pH Sodium Potassium Chloride Carbon Dioxide BUN Creatinine Glucose POC Glucose Lactic Acid 6.30 H* Calcium Magnesium 1.40 L Total Bilirubin AST C-Reactive Protein NT-Pro-B Natriuret Pep 528.8 H Albumin TSH Urine WBC (Auto) U Epithel Cells (Auto) 10/27/17 10/27/17 10/28/17 22:55 Unknown 05:13 WBC 28.4 H Hgb Hct MCV MCH 24 L RDW 19.0 H Lymph % (Auto) Lymph # Seg Neutrophils % Seg Neuts % (Manual) Lymphocytes % (Manual) 10.0 L Monocytes % (Manual) 10.0 H Nucleated RBC % Seg Neutrophils # Seg Neutrophils # Man 18.3 H Lymphocytes # (Manual) Monocytes # (Manual) 2.8 H POC ABG pH POC ABG pO2 VBG pH 7.199 L* Sodium Potassium Chloride Carbon Dioxide BUN Creatinine Glucose POC Glucose Lactic Acid Calcium Magnesium Total Bilirubin AST C-Reactive Protein NT-Pro-B Natriuret Pep Albumin TSH Urine WBC (Auto) 23.0 H U Epithel Cells (Auto) 28.0 H 10/28/17 10/28/17 10/28/17 05:13 06:05 14:45 WBC Hgb Hct MCV MCH RDW Lymph % (Auto) Lymph # Seg Neutrophils % Seg Neuts % (Manual) Lymphocytes % (Manual) Monocytes % (Manual) Nucleated RBC % Seg Neutrophils # Seg Neutrophils # Man Lymphocytes # (Manual) Monocytes # (Manual) POC ABG pH 7.345 L POC ABG pO2 61 L VBG pH Sodium Potassium Chloride Carbon Dioxide 19 L BUN Creatinine 2.1 H Glucose 140 H POC Glucose Lactic Acid 3.00 H* Calcium Magnesium Total Bilirubin AST C-Reactive Protein NT-Pro-B Natriuret Pep Albumin TSH Urine WBC (Auto) U Epithel Cells (Auto) 10/29/17 10/29/17 10/29/17 04:18 04:18 06:33 WBC 15.9 H Hgb Hct MCV 78 L MCH 25 L RDW 19.3 H Lymph % (Auto) 6.5 L Lymph # 1.0 L Seg Neutrophils % 89.0 H Seg Neuts % (Manual) Lymphocytes % (Manual) Monocytes % (Manual) Nucleated RBC % Seg Neutrophils # 14.2 H Seg Neutrophils # Man Lymphocytes # (Manual) Monocytes # (Manual) POC ABG pH POC ABG pO2 VBG pH Sodium Potassium Chloride Carbon Dioxide BUN 18 H Creatinine 1.3 H Glucose 207 H POC Glucose 221 H Lactic Acid Calcium 8.3 L Magnesium Total Bilirubin AST C-Reactive Protein NT-Pro-B Natriuret Pep Albumin TSH Urine WBC (Auto) U Epithel Cells (Auto) 10/29/17 10/29/17 10/29/17 14:37 14:37 15:00 WBC Hgb Hct MCV MCH RDW Lymph % (Auto) Lymph # Seg Neutrophils % Seg Neuts % (Manual) Lymphocytes % (Manual) Monocytes % (Manual) Nucleated RBC % Seg Neutrophils # Seg Neutrophils # Man Lymphocytes # (Manual) Monocytes # (Manual) POC ABG pH 7.456 H POC ABG pO2 VBG pH Sodium Potassium Chloride Carbon Dioxide BUN Creatinine Glucose POC Glucose Lactic Acid Calcium Magnesium Total Bilirubin AST C-Reactive Protein 27.20 H NT-Pro-B Natriuret Pep Albumin TSH < 0.005 L Urine WBC (Auto) U Epithel Cells (Auto) 10/30/17 10/30/17 10/30/17 06:00 08:31 10:33 WBC Hgb 10.0 L Hct MCV 77 L MCH 24 L RDW 18.9 H Lymph % (Auto) Lymph # Seg Neutrophils % Seg Neuts % (Manual) Lymphocytes % (Manual) Monocytes % (Manual) Nucleated RBC % Seg Neutrophils # Seg Neutrophils # Man Lymphocytes # (Manual) Monocytes # (Manual) POC ABG pH POC ABG pO2 VBG pH Sodium Potassium Chloride Carbon Dioxide BUN Creatinine Glucose POC Glucose 215 H 247 H Lactic Acid Calcium Magnesium Total Bilirubin AST C-Reactive Protein NT-Pro-B Natriuret Pep Albumin TSH Urine WBC (Auto) U Epithel Cells (Auto) 10/30/17 10/30/17 10/30/17 10:33 10:54 15:56 WBC Hgb Hct MCV MCH RDW Lymph % (Auto) Lymph # Seg Neutrophils % Seg Neuts % (Manual) Lymphocytes % (Manual) Monocytes % (Manual) Nucleated RBC % Seg Neutrophils # Seg Neutrophils # Man Lymphocytes # (Manual) Monocytes # (Manual) POC ABG pH POC ABG pO2 VBG pH Sodium 149 H Potassium 3.5 L Chloride 110.6 H Carbon Dioxide BUN 22 H Creatinine Glucose 235 H POC Glucose 266 H 162 H Lactic Acid Calcium Magnesium Total Bilirubin AST C-Reactive Protein NT-Pro-B Natriuret Pep Albumin TSH Urine WBC (Auto) U Epithel Cells (Auto) 10/30/17 10/31/17 10/31/17 22:20 03:34 03:34 WBC Hgb 9.3 L Hct 29.0 L MCV 77 L MCH 25 L RDW 19.1 H Lymph % (Auto) Lymph # Seg Neutrophils % Seg Neuts % (Manual) 71.0 H Lymphocytes % (Manual) Monocytes % (Manual) 9.0 H Nucleated RBC % Seg Neutrophils # Seg Neutrophils # Man Lymphocytes # (Manual) 1.0 L Monocytes # (Manual) POC ABG pH POC ABG pO2 VBG pH Sodium 148 H Potassium 3.4 L Chloride 109.5 H Carbon Dioxide BUN 23 H Creatinine Glucose 234 H POC Glucose 283 H Lactic Acid Calcium 8.2 L Magnesium Total Bilirubin AST C-Reactive Protein NT-Pro-B Natriuret Pep Albumin TSH Urine WBC (Auto) U Epithel Cells (Auto) 10/31/17 10/31/17 10/31/17 08:06 11:53 16:02 WBC Hgb Hct MCV MCH RDW Lymph % (Auto) Lymph # Seg Neutrophils % Seg Neuts % (Manual) Lymphocytes % (Manual) Monocytes % (Manual) Nucleated RBC % Seg Neutrophils # Seg Neutrophils # Man Lymphocytes # (Manual) Monocytes # (Manual) POC ABG pH POC ABG pO2 VBG pH Sodium Potassium Chloride Carbon Dioxide BUN Creatinine Glucose POC Glucose 172 H 257 H 179 H Lactic Acid Calcium Magnesium Total Bilirubin AST C-Reactive Protein NT-Pro-B Natriuret Pep Albumin TSH Urine WBC (Auto) U Epithel Cells (Auto) 11/01/17 11/02/17 11/02/17 10:26 06:06 06:06 WBC 15.2 H Hgb Hct MCV 77 L MCH 24 L RDW 18.1 H Lymph % (Auto) Lymph # Seg Neutrophils % Seg Neuts % (Manual) Lymphocytes % (Manual) Monocytes % (Manual) Nucleated RBC % 1.0 H Seg Neutrophils # Seg Neutrophils # Man 10.3 H Lymphocytes # (Manual) Monocytes # (Manual) POC ABG pH POC ABG pO2 VBG pH Sodium Potassium 3.0 L 3.2 L Chloride Carbon Dioxide BUN 19 H Creatinine 0.6 L Glucose 202 H 128 H POC Glucose Lactic Acid Calcium 8.2 L 8.3 L Magnesium Total Bilirubin AST C-Reactive Protein NT-Pro-B Natriuret Pep Albumin TSH Urine WBC (Auto) U Epithel Cells (Auto)
--- NOTE | 2017-11-02 15:50 | Progress Note ---
Assessment and Plan Sepsis likely due to CAP and UTI - Cx is negative - will cover total 7 days of abx to cover PNA Shock - likely from sepsis with underlying h/o corticosteroid deficiency - s/p levophed and vasopressin, - placed on solucortef 100mg q8h iv, now taper the dose to po History of pituitary tumor - s/p resection 2 years ago - cont synthroid, steroid and Ddavp h/o cortisol insufficiency/ hypothyroidism/iatrogenic DI - cont supplement po dose Acute respiratory failure - likely from PNA, supplemental O2 to keep o2 sat >92 - nebulizer, steroid, pulmonary following - s/p Bipap, now on N/c NIKIA - likely vasomotor nephropathy from sepsis - cont iv fluid, consulted renal - renal function improved Hypernatremia - likely from dehydration and chronic corticosteroid deficiency - improved with hypotonic solution - monitor BMP Chronic Hypokalemia - chronic corticosteroid deficiency - replete and monitor Morbid obesity - nutrition consulted D/c when K level stabilized. Need PCP referral. Brief History: 47-year-old male with a history of pituitary tumor s/p resection, cortisol deficiency on supplement was brought to the emergency room with complaints of altered mental status that started for last two days. Physical exam: Gen. appearance: Patient lying in bed in no acute distress, on n/c HEENT: Normocephalic/atraumatic, pupils equal round reactive to light, no scleral icterus, no JVD or thyromegaly or nodule, neck is supple, mucous membrane moist, no erythema or exudate Heart: S1-S2, tachycardic Lungs: NO Crackles bilateral, breathing comfortable Abdomen: Positive bowel sounds, nontender, nondistended, no organomegaly Extremities: No edema, cyanosis, clubbing Neuro:: AAO X3. no focal deficit Skin: No rash, nodules, warm dry Subjective Date of service: 11/02/17 Principal diagnosis: Sepsis Syndrome; Acute Encephalopathy; Acute Hypoxemic Resp Failure Interval history: patient seen and examined doing better, tolerating diet updated daughter at bedside Objective - Constitutional Vitals: Vital Signs - 12hr 11/02/17 11/02/17 11/02/17 05:34 08:19 10:00 Temperature 98.6 F Pulse Rate 78 55 L 60 Respiratory 20 22 Rate Blood Pressure 122/66 Blood Pressure 108/70 [Left] O2 Sat by Pulse 100 100 98 Oximetry 11/02/17 11/02/17 11:47 11:48 Temperature 98.6 F Pulse Rate 60 62 Respiratory 18 Rate Blood Pressure 130/79 Blood Pressure [Left] O2 Sat by Pulse 100 100 Oximetry - Labs CBC & Chem 7: 11/02/17 06:06 11/02/17 06:06 Labs: Abnormal lab results 11/02/17 11/02/17 Range/Units 06:06 06:06 WBC 15.2 H (4.5-11.0) K/mm3 MCV 77 L (79-97) fl MCH 24 L (28-32) pg RDW 18.1 H (13.2-15.2) % Nucleated RBC % 1.0 H (0.0-0.9) % Seg Neutrophils # Man 10.3 H (1.8-7.7) K/mm3 Potassium 3.2 L (3.6-5.0) mmol/L Creatinine 0.6 L (0.7-1.2) mg/dL Glucose 128 H (65-100) mg/dL Calcium 8.3 L (8.4-10.2) mg/dL
[2017-11-03] MEDS ORDERED: SYNTHROID 150 MCG, SYNTHROID 25 MCG PO SCH (06:00)
[2017-11-03] MEDS ORDERED: SYNTHROID PO SCH ×2 (06:00)
[2017-11-03 06:21] LABS: Hematocrit 33.3 % (30.3-42.9); Hemoglobin 10.8 gm/dl (10.1-14.3); Mean Corpuscular HGB Conc 32 % (30-34); Mean Corpuscular Volume 76 fl (79-97); Platelet Count 222 K/mm3 (140-440); Red Blood Count 4.36 M/mm3 (3.65-5.03); Red Cell Distribution Width 18.1 % (13.2-15.2)
[2017-11-03 06:30] LABS: Mean Corpuscular Hemoglobin 25 pg (28-32)
[2017-11-03 06:34] LABS: BUN/Creatinine Ratio 17; Blood Urea Nitrogen 10 mg/dL (7-17); Calcium 7.8 mg/dL (8.4-10.2); Hemolysis Index 26
[2017-11-03 08:30] LABS: Band Neutrophils # (Manual) 0.1 K/mm3; Basophils % (Manual) 0 % (0.0-1.8); Hypochromasia 1+; Total Cells Counted 100
[2017-11-03 08:32] LABS: Anisocytosis 1+
[2017-11-03] MEDS ORDERED: K-DUR PO NR (10:00)
[2017-11-03] MEDS: LEVAQUIN PO SCH (10:01)
[2017-11-03] MEDS: LOVENOX SUB-Q SCH (10:02)
[2017-11-03] MEDS: CORTEF PO SCH (10:02)
[2017-11-03] MEDS: DDAVP PO SCH (10:02)
[2017-11-03 11:08] VITALS: BP 113/71
--- NOTE | 2017-11-03 11:46 | Discharge Summary ---
Providers - Providers Date of Admission: 10/27/17 23:26 Date of discharge: 11/03/17 Attending physician: MAGGIE DEVINE 10/28/17 09:18 Speech Therapy Evaluation and Treat [CONS] Routine Reason For Exam: aspiration 10/28/17 14:54 Consult to Physician [CONS] Routine Consulting Provider: SEVERINO GOETZ Reason For Exam: NIKIA with DI h/o pituitary surgery Place consult to:: correspondence section supervisor nephrology Notified:: Y 10/28/17 15:38 Consult to Physician [CONS] Stat Consulting Provider: AVELINO KHALIL Reason For Exam: CCU admission Place consult to:: [place] Notified:: yes If yes, spoke with:: DR KHALIL Time called:: 15:35 10/29/17 00:19 Consult to Physician [CONS] Urgent Consulting Provider: JEN JORDAN Reason For Exam: cc Notified:: already notified 10/29/17 12:42 PICC Line Insertion [Consult to PICC Line RN] [CONS] Urgent Reason For Exam: Access Type Line:: PICC 10/30/17 15:33 Consult to Dietitian/Nutrition [CONS] Routine Physician Instructions: Reason For Exam: Reason for Consult: Write/Manage Tube Feeding Primary care physician: MAE GRAHAM Hospitalization Condition: Stable Hospital course: Patient is a 47-year-old woman patient is a 39-year-old woman with history of pituitary tumor, hypothyroidism, DI, adrenal insufficiency who presented to the emergency department with altered mental status, shortness of breath and productive yellow cough. CXR showed Patchy bibasilar airspace opacities, compatible with infiltrates or atelectasis. Small bilateral pleural effusions. She was diagnosed with the following: -Acute metabolic encephalopathy, poa -Sepsis Bibasilar PNA with pleural effusions -Acute hypoxic respiratory failure, O2 has been weaned off -Septic Shock -UTI, poa -ARF, vasomotor nephropathy, poa -Acute on Chronic hypokalemia -Morbid obesity, bmi 51.8 -Iatrogenic DI, started Desmopressin by Dr. Liberty Mccrary per chart, which patient says worked in "slowing her urinating down" and she would like a scriptl Disposition: TO HOME OR SELFCARE Time spent for discharge: 35 minutes Core Measure Documentation - Palliative Care Palliative Care/ Comfort Measures: Not Applicable - Core Measures Any of the following diagnoses?: none - VTE Discharge Requirements Deep Vein Thrombosis/Pulmonary Embolism Present on Admission: No Has pt received <5 days of overlap therapy or INR<2.0: No Anticoagulant overlap therapy prescribed at discharge: No Contraindication No Overlap Therapy order at DC: Not Indicated Exam - Physical Exam Narrative exam: GEN: WDWN, NAD, AWAKE, ALERT, ORIENTATED x 3 HEENT: NCAT, EOMI, PERRL, OP Clear NECK: supple, no adenopathy, no thyromegaly, no JVD CVS/HEART: RRR, NORMAL S1S2, pulses present bilaterally CHEST/LUNGS: CTA B, Symmetrical chest expansion, good air entry bilaterally GI/Abdomen: soft, NTND, good bowel sounds, no guarding or rebound /Bladder: no suprapubic tenderness, no CVA or paraspinal tenderness EXT/Skin: no c/c/e, no obvious rash MSK: FROM x 4 Neuro: CN 2-12 grossly intact, no new focal deficits Psych: calm - Constitutional Vitals: Temp Pulse Resp BP Pulse Ox 98.4 F 70 22 113/71 96 11/03/17 07:34 11/03/17 07:34 11/03/17 07:34 11/03/17 07:34 11/03/17 08:45 Plan Activity: other (no strenous activity not) Diet: per dietitian instruction (1. Mechanical soft diet with chopped meat and thin liquids and aspiration precautions) Follow up with: MAE GRAHAM MD [Primary Care Provider] - 3-5 Days JEN JORDAN MD [Staff Physician] - 7 Days SEVERINO GOETZ MD [Staff Physician] - 7 Days Prescriptions: Desmopressin [Ddavp] 0.1 mg PO BID #60 tablet Levofloxacin [Levaquin TAB] 750 mg PO DAILY 3 Days #3 tablet Potassium Chloride [K-Dur] 40 meq PO BID 30 Days #60 tablet predniSONE [Deltasone] 1 dose PO DAILY #1 mo
[2017-11-03] MEDS: K-DUR PO SCH (11:47)
[2017-11-03 14:06] LABS: Basophils # (Auto) 0.1 K/mm3 (0.0-0.1); Eosinophils # (Auto) 0.3 K/mm3 (0.0-0.4); Eosinophils % (Auto) 2.5 % (0.0-4.3); Monocytes # (Auto) 0.8 K/mm3 (0.0-0.8); Monocytes % (Auto) 6.9 % (0.0-7.3)
== END 2017-11-03 14:08 | disposition home or self-care (01) | DRG 871 ==
LOC: ED 17:19 → 3A 23:26 → CC1 10-28 07:00 → 4A 10-31 20:51
PROVIDERS: ADMIT Internal Medicine; ATTEND Internal Medicine
PROC: 4A033R1 Measurement of Arterial Saturation, Peripheral, Percutaneous Approach (ICD-10-PCS; principal; 2017-10-28)
PROC: 5A09457 Assistance with Respiratory Ventilation, 24-96 Consecutive Hours, Continuous Positive Airway Pressure (ICD-10-PCS; 2017-10-28)
PROC: 06JYXZZ Inspection of Lower Vein, External Approach (ICD-10-PCS; 2017-10-28)
PROC: 06HN33Z Insertion of Infusion Device into Left Femoral Vein, Percutaneous Approach (ICD-10-PCS; 2017-10-28)
PROC: B54CZZA Ultrasonography of Left Lower Extremity Veins, Guidance (ICD-10-PCS; 2017-10-28)
DX: A41.9 Sepsis, unspecified organism (principal); J96.01 Acute respiratory failure with hypoxia; R65.21 Severe sepsis with septic shock; J18.9 Pneumonia, unspecified organism; N17.0 Acute kidney failure with tubular necrosis; G93.41 Metabolic encephalopathy; D49.9 Neoplasm of unspecified behavior of unspecified site; E03.9 Hypothyroidism, unspecified; N39.0 Urinary tract infection, site not specified; E87.6 Hypokalemia; E23.0 Hypopituitarism; E86.0 Dehydration; E87.0 Hyperosmolality and hypernatremia; E66.01 Morbid (severe) obesity due to excess calories; Z98.51 Tubal ligation status; Z82.49 Family history of ischemic heart disease and other diseases of the circulatory system; Z68.43 Body mass index [BMI] 50.0-59.9, adult
CPT/HCPCS: 36415; 36600; 71046; 80048; 80053; 81001; 82140; 82533; 82803; 82805; 82962; 83690; 83735; 83880; 84443; 84703; 85007; 85025; 85027; 86140; 87040; 87086; 87400; 93005; 93010; 94660; 94760; 96361; 96365; 96366; 96372; 96375; 96376; J0456; J0696; J1650; J1720; J1956; J2270; J2405; J2543; J3475; J7030; J7050

== ENCOUNTER 2017-12-16 17:59 | Emergency (ER) | payer MEDICAID ==
[2017-12-16] MEDS ORDERED: SUBLIMAZE IV ONE (18:16)
[2017-12-16] MEDS ORDERED: ZOFRAN IV ONE (18:16)
[2017-12-16 18:38] LABS: Basophils # (Auto) 0.1 K/mm3 (0.0-0.1); Basophils % (Auto) 0.7 % (0.0-1.8); Eosinophils # (Auto) 0.3 K/mm3 (0.0-0.4); Eosinophils % (Auto) 3.6 % (0.0-4.3); Hematocrit 34.4 % (30.3-42.9); Hemoglobin 10.6 gm/dl (10.1-14.3); Lymphocytes # (Auto) 3.4 K/mm3 (1.2-5.4); Lymphocytes % (Auto) 44.2 % (13.4-35.0); Mean Corpuscular HGB Conc 31 % (30-34); Mean Corpuscular Volume 78 fl (79-97); Monocytes # (Auto) 0.4 K/mm3 (0.0-0.8); Monocytes % (Auto) 5.4 % (0.0-7.3); Platelet Count 431 K/mm3 (140-440); Red Blood Count 4.41 M/mm3 (3.65-5.03)
[2017-12-16 18:48] LABS: Mean Corpuscular Hemoglobin 24 pg (28-32)
[2017-12-16 19:01] LABS: Alanine Aminotransferase 19 units/L (7-56); Albumin 3.3 g/dL (3.9-5); BUN/Creatinine Ratio 7; Blood Urea Nitrogen 6 mg/dL (7-17); Calcium 8.9 mg/dL (8.4-10.2); Hemolysis Index 41; Lipase 26 units/L (13-60)
[2017-12-16] MEDS ORDERED: TYLENOL PO ONE (21:31)
[2017-12-16] MEDS ORDERED: BENTYL PO ONE (21:31)
[2017-12-16] MEDS ORDERED: CARAFATE PO ONE (21:31)
--- NOTE | 2017-12-16 21:41 | Emergency Department Report ---
ED Abdominal Pain HPI - General Chief Complaint: Abdominal Pain Stated Complaint: ABDOMINAL/BACK/SIDE PAIN Time Seen by Provider: 12/16/17 21:21 Source: patient, RN notes reviewed, old records reviewed Mode of arrival: Ambulatory Limitations: No Limitations - History of Present Illness Initial Comments: This is a 47-year-old female. The patient is previously known to this provider. Correction Worker: Dr. Goezt Past medical history includes pituitary tumor, hypothyroidism, diabetes insipidus, adrenal insufficiency The patient reports one week of crampy right lower quadrant pain which radiates to the back. Patient initially reports dysuria, saw her talent development manager who prescribed Macrobid, Zofran. She reports her pain is getting worse. Her urinary symptoms have resolved. To me, she denies headache, neck pain, chest pain, nausea, vomiting, fevers and chills. MD Complaint: abdominal pain, flank pain -: Gradual, days(s) Location: RLQ, R flank Radiation: R flank Severity: moderate Quality: cramping Consistency: intermittent Improves With: nothing Worsens With: nothing Associated Symptoms: dysuria. denies: nausea, vomiting, diarrhea, fever, chills , constipation, hematemesis, hematochezia, melena, hematuria, anorexia, syncope - Related Data Previous Rx's Medication Instructions Recorded Last Taken Type Acetaminophen [Acetaminophen TAB] 650 mg PO Q4H PRN #30 tablet 11/03/17 Unknown Rx Desmopressin [Ddavp] 0.1 mg PO BID #60 tablet 11/03/17 Unknown Rx Levofloxacin [Levaquin TAB] 750 mg PO DAILY 3 Days #3 tablet 11/03/17 Unknown Rx Levothyroxine Sodium [Synthroid] 175 mcg PO QAM #30 tab 11/03/17 10/26/17 Rx Potassium Chloride [K-Dur] 40 meq PO BID 30 Days #60 tablet 11/03/17 Unknown Rx predniSONE [Deltasone] 1 dose PO DAILY #1 mo 11/03/17 Unknown Rx Acetaminophen [Tylenol Arthritis] 650 mg PO Q6HR PRN #30 tablet.er 12/16/17 Unknown Rx Ibuprofen [Motrin] 600 mg PO Q8H PRN #30 tablet 12/16/17 Unknown Rx Levofloxacin [Levaquin] 750 mg PO QDAY #6 tablet 12/16/17 Unknown Rx Metoclopramide [Reglan] 10 mg PO QID PRN #30 tablet 12/16/17 Unknown Rx Allergies Allergy/AdvReac Type Severity Reaction Status Date / Time heparin Allergy Unknown Verified 10/28/17 18:40 ED Review of Systems ROS: Stated complaint: ABDOMINAL/BACK/SIDE PAIN Other details as noted in HPI Comment: All other systems reviewed and negative ED Past Medical Hx - Past Medical History Previous Medical History?: Yes Hx Congestive Heart Failure: No Hx Diabetes: No Hx Deep Vein Thrombosis: No Hx Asthma: No Hx COPD: No Hx HIV: No Additional medical history: shunt in her head, ARDS, Pleural effusion, Abd pain , Acute kidney injury - Surgical History Past Surgical History?: Yes Hx Pacemaker: No Hx Internal Defibrillator: No Additional Surgical History: TUBAL LIGATION, shunt in the head, Pituitary tumor removal - Social History Smoking Status: Never Smoker - Medications Home Medications: Home Medications Medication Instructions Recorded Confirmed Last Taken Type Acetaminophen [Acetaminophen TAB] 650 mg PO Q4H PRN #30 tablet 11/03/17 Unknown Rx Desmopressin [Ddavp] 0.1 mg PO BID #60 tablet 11/03/17 Unknown Rx Levofloxacin [Levaquin TAB] 750 mg PO DAILY 3 Days #3 tablet 11/03/17 Unknown Rx Levothyroxine Sodium [Synthroid] 175 mcg PO QAM #30 tab 11/03/17 10/28/17 Rx Potassium Chloride [K-Dur] 40 meq PO BID 30 Days #60 tablet 11/03/17 Unknown Rx predniSONE [Deltasone] 1 dose PO DAILY #1 mo 11/03/17 Unknown Rx Acetaminophen [Tylenol Arthritis] 650 mg PO Q6HR PRN #30 tablet.er 12/16/17 Unknown Rx Ibuprofen [Motrin] 600 mg PO Q8H PRN #30 tablet 12/16/17 Unknown Rx Levofloxacin [Levaquin] 750 mg PO QDAY #6 tablet 12/16/17 Unknown Rx Metoclopramide [Reglan] 10 mg PO QID PRN #30 tablet 12/16/17 Unknown Rx ED Physical Exam - General Limitations: No Limitations General appearance: alert, in no apparent distress - Head Head exam: Present: atraumatic, normocephalic - Eye Eye exam: Present: normal appearance, EOMI. Absent: nystagmus - ENT ENT exam: Present: normal exam, normal orophraynx, mucous membranes moist, normal external ear exam - Neck Neck exam: Present: normal inspection, full ROM - Respiratory Respiratory exam: Present: normal lung sounds bilaterally. Absent: respiratory distress - Cardiovascular Cardiovascular Exam: Present: regular rate, normal rhythm, normal heart sounds. Absent: bradycardia, tachycardia, irregular rhythm, systolic murmur, diastolic murmur, rubs, gallop - GI/Abdominal GI/Abdominal exam: Present: soft, normal bowel sounds. Absent: distended, tenderness, guarding, rebound, rigid, pulsatile mass - Extremities Exam Extremities exam: Present: normal inspection, full ROM, normal capillary refill. Absent: pedal edema, joint swelling, calf tenderness - Back Exam Back exam: Present: normal inspection, full ROM. Absent: tenderness, CVA tenderness (R), paraspinal tenderness, vertebral tenderness - Neurological Exam Neurological exam: Present: alert, oriented X3, CN II-XII intact, normal gait, other (Extraocular movements intact. Tongue midline. No facial droop. Facial sensation intact to light touch in the V1, V2, V3 distribution bilaterally. 5 and 5 strength in 4 extremities.. Sensation is intact to light touch in 4 extremities.). Absent: motor sensory deficit - Psychiatric Psychiatric exam: Present: normal affect, normal mood - Skin Skin exam: Present: warm, dry, intact, normal color. Absent: rash ED Course Vital Signs 12/16/17 12/16/17 12/16/17 18:09 19:18 22:39 Temperature 98.8 F Pulse Rate 91 H 82 Respiratory 22 20 20 Rate Blood Pressure 113/75 Blood Pressure 112/78 [Left] O2 Sat by Pulse 98 99 Oximetry - Reevaluation(s) Reevaluation #1: 12/16/17 22:23 Differential diagnosis, including but not limited to: Urinary tract infection, renal colic, appendicitis, pyelonephritis Assessment and plan: 47-year-old female currently on Macrobid, with right lower quadrant pain, flank pain that radiates to the back. There is no CVA tenderness. She is afebrile with reassuring vital signs and has a benign physical exam. Maybe early pyelonephritis. Labs unremarkable with the exception of urinalysis that suggests urinary tract infection. The patient's pain will be treated. We will obtain a noncontrast CT scan of the abdomen and pelvis. It would be this provider's preference to avoid IV contrast given her past history of acute kidney injury. Reevaluation #2: 12/16/17 23:30 CT scan does not demonstrate right-sided kidney stone, incidental gastric findings noted, no evidence of renal calculus in the right side is noted, and the appendix is also within normal limits. Patient will be therefore treated empirically for pyelonephritis. Macrobid, Zofran discontinued, loaded with ceftriaxone, will be discharged with Levaquin, and Reglan. Instructed to follow -up with her outpatient talent development manager or primary care doctor in 48-72 hours for recheck. ED Medical Decision Making - Lab Data Result diagrams: 12/16/17 18:29 12/16/17 18:29 Vital Signs 12/16/17 12/16/17 18:09 19:18 Temperature 98.8 F Pulse Rate 91 H Respiratory 22 20 Rate Blood Pressure 113/75 O2 Sat by Pulse 98 Oximetry Lab Results 12/16/17 12/16/17 12/16/17 Range/Units 18:29 18:29 21:45 WBC 7.8 (4.5-11.0) K/mm3 RBC 4.41 (3.65-5.03) M/mm3 Hgb 10.6 (10.1-14.3) gm/dl Hct 34.4 (30.3-42.9) % MCV 78 L (79-97) fl MCH 24 L (28-32) pg MCHC 31 (30-34) % RDW 19.0 H (13.2-15.2) % Plt Count 431 (140-440) K/mm3 Lymph % (Auto) 44.2 H (13.4-35.0) % Milam % (Auto) 5.4 (0.0-7.3) % Eos % (Auto) 3.6 (0.0-4.3) % Baso % (Auto) 0.7 (0.0-1.8) % Lymph # 3.4 (1.2-5.4) K/mm3 Milam # 0.4 (0.0-0.8) K/mm3 Eos # 0.3 (0.0-0.4) K/mm3 Baso # 0.1 (0.0-0.1) K/mm3 Seg Neutrophils % 46.1 (40.0-70.0) % Seg Neutrophils # 3.6 (1.8-7.7) K/mm3 Sodium 136 L (137-145) mmol/L Potassium 4.1 (3.6-5.0) mmol/L Chloride 98.0 (98-107) mmol/L Carbon Dioxide 24 (22-30) mmol/L Anion Gap 18 mmol/L BUN 6 L (7-17) mg/dL Creatinine 0.9 (0.7-1.2) mg/dL Estimated GFR > 60 ml/min BUN/Creatinine Ratio 7 % Glucose 122 H (65-100) mg/dL Calcium 8.9 (8.4-10.2) mg/dL Total Bilirubin 0.30 (0.1-1.2) mg/dL AST 40 (5-40) units/L ALT 19 (7-56) units/L Alkaline Phosphatase 68 (35-129) units/L Total Protein 7.3 (6.3-8.2) g/dL Albumin 3.3 L (3.9-5) g/dL Albumin/Globulin Ratio 0.8 % Lipase 26 (13-60) units/L Urine Color Indigo (Yellow) Urine Turbidity Clear (Clear) Urine pH 5.0 (5.0-7.0) Ur Specific Krypton 1.029 (1.003-1.030) Urine Protein 30 mg/dl (Negative) mg/dL Urine Glucose (UA) Neg (Negative) mg/dL Urine Ketones Tr (Negative) mg/dL Urine Blood Neg (Negative) Urine Nitrite Neg (Negative) Urine Bilirubin Sm (Negative) Urine Ictotest Negative (Negative) Urine Urobilinogen 4.0 (<2.0) mg/dL Ur Leukocyte Esterase Lg (Negative) Urine WBC (Auto) 48.0 H (0.0-6.0) /HPF Urine RBC (Auto) 6.0 (0.0-6.0) /HPF U Epithel Cells (Auto) 8.0 (0-13.0) /HPF Urine Bacteria (Auto) 1+ (Negative) /HPF Urine Mucus Few /HPF Critical care attestation.: If time is entered above; I have spent that time in minutes in the direct care of this critically ill patient, excluding procedure time. ED Disposition Clinical Impression: UTI (urinary tract infection) Qualifiers: Urinary tract infection type: site unspecified Hematuria presence: without hematuria Qualified Code(s): N39.0 - Urinary tract infection, site not specified Disposition: DC-01 TO HOME OR SELFCARE Is pt being admited?: No Does the pt Need Aspirin: No Condition: Stable Instructions: Acute Pyelonephritis (ED) Additional Instructions: Discontinue Macrobid and Zofran prescriptions. Instead, take Levaquin antibiotic and Reglan. Cultures were sent today, results will be available in the next 3-5 days. Have your primary care doctor or a kidney specialist contact the medical records department to obtain the culture results. Follow- up in 2-3 days for recheck, either with your primary care doctor, talent development manager, or return to the ER for recheck. Return to the ER right away with new pain, worsened pain, migration of pain, fevers, confusion, projectile vomiting, lethargy, inability to tolerate liquid feeds. Referrals: PRIMARY MD DOUGLAS [Primary Care Provider] - 3-5 Days SEVERINO GOETZ MD [Staff Physician] - 3-5 Days
[2017-12-16 22:01] LABS: Bacteria,Urine 1+ /HPF (Negative); Bilirubin,Urine SM (Negative); Blood,Urine NEG (Negative); Color,Urine Amber (Yellow); Mucus,Urine FEW /HPF
[2017-12-16 22:05] LABS: Ictotest,Urine Negative (Negative)
--- NOTE | 2017-12-16 23:26 | Cat Scan Report ---
FINAL REPORT PROCEDURE: CT ABDOMEN PELVIS WO CON TECHNIQUE: Computerized axial tomography of the abdomen and pelvis was performed without intravenous contrast. This study is performed without intravascular contrast material and its sensitivity for abdominal and pelvic pathology, including neoplasms, inflammation, abscess, free fluid, thrombosis, arterial dissection and infarction, is reduced compared with a contrast enhanced study. HISTORY: rlq/right flank pain COMPARISON: No prior studies are available for comparison. FINDINGS: Visualized lower thorax: No significant abnormality. Liver: Normal size and attenuation. Spleen: Normal size and attenuation. Gallbladder and biliary system: Normal. Pancreas: Normal. Adrenals: Normal. Kidneys: Both kidneys have a normal size. No hydronephrosis. No renal masses. There is a 4 millimeter stone in the corticomedullary region of the mid left kidney.. GI tract: Mild thickening of the gastric wall along the pylorus of the stomach. Gastritis is suspected. Ulceration is not excluded. Further evaluation with endoscopy or upper gastrointestinal study may be appropriate. The small bowel has a normal caliber. The cecum and appendix region are normal. Moderate diverticular change throughout the colon.. Lymph nodes and mesentery: Normal. Vasculature: Normal. Bladder: Normal. Reproductive organs: The uterus is retroverted. No pelvic masses. Peritoneum: No free fluid. Musculoskeletal structures: Mild degenerative changes of the thoracolumbar spine.. Other: None. IMPRESSION: There is some thickening of the gastric wall along the pylorus of the stomach. Gastritis is suspected. Further evaluation with endoscopy and/or upper gastrointestinal study may be appropriate. No evidence of intestinal or urinary tract obstruction. No ileus or enteritis. Mild diverticulosis of the colon. Left renal calculi is noted..
[2017-12-16] MEDS ORDERED: ROCEPHIN/NS 1 GM/50 ML 1 GM/50 ML BAG IV ONE (23:30)
[2017-12-16] MEDS ORDERED: cefTRIAXone 1 GM in NACL 0.9% 20 ML IV ONE (23:45)
[2017-12-17 01:00] VITALS: BP 95/65
== END 2017-12-17 00:35 | disposition home or self-care (01) ==
LOC: ED 17:59
DX: N39.0 Urinary tract infection, site not specified (principal); Z88.8 Allergy status to other drugs, medicaments and biological substances
CPT/HCPCS: 36415; 74176; 80053; 81001; 83690; 85025; 87086; 96374; 96375; 99284; J0696; J2405; J3010